=== PATIENT | female | born 1960 | race Caucasian/White ===

== ENCOUNTER → 2017-10-13 14:13 | Outpatient (CLI) | payer OTHER, MEDICAID, SELFPAY ==
--- NOTE | 2017-10-13 | DI.NM.S_ITS ---
PROCEDURE: NM SATYA PERF SPECT R&S PHARM Rest and pharmacological stress myocardial perfusion SPECT with gated imaging and ejection fraction RADIOPHARMACEUTICAL: 26.5 mCi Tc-99m tetrafosmin IV at rest and 25.6 mCi Tc-99m tetrafosmin IV at peak effect of pharmacological stress. [id number] was performed. INDICATIONS: DYSPNEA ON EXERTION TECHNIQUE: Radiopharmaceutical was injected at peak stress test, and also at rest. SPECT images were obtained. SPECT myocardial perfusion images were displayed in short axis, horizontal long axis, and vertical long axis views. Gated images were reviewed using [employer] software. COMPARISON: None. CARDIAC STRESS: Patient exercised for 5 minutes and 40 sconds and reached 80% of target heart rate. Study was then switched to pharmacologic stress test, which was also performed under the supervision of an attending staff, using an infusion of lexiscan 0.4mg IV X1. Hemodynamic data: There is borderline hypertensive (max BP 200/70) response to exercise and normal heart rate response to exercise. Symptoms: The patient denied anginal chest pain. Aminophylline: none EKG: No diagnostic changes of ischemia; no ectopy. FINDINGS: Raw data: There is good myocardial uptake of radiotracer. No significant motion artifacts. Left ventricle function: Gated images demonstrate normal left ventricular wall thickening. No segmental wall motion abnormalities. No transient ischemic dilation; TID is 0.88 (normal less than 1.3). Left ventricle resting end diastolic volume is 101 mL. Left ventricle stress ejection fraction is 88%; normal range is above 45%. Myocardial perfusion: There is normal distribution of activity in the right and left ventricular myocardium. No fixed or reversible perfusion defects. IMPRESSION: Low risk, normal treadmill and pharmaceutcal nuclear stress test. 1) Normal perfusion images, with no ischemia and no infarction. 2) Normal left ventricular size, wall motion, and systolic function (post stress EF 88%). 3) No ECG changes with treadmill or lexiscan. 4) No angina during the study. 5) Reduced exercise capacity (7.0 METs). While the only 80% of maximum predicted heart rate was reached, the double product was [address]43 suggesting adequate stresss test. Study was still switched to pharmaceutical study for completeness sake. 6) Borderline hypertensive response with exercise (max BP 200/70). 7) No prior stress test available for comparison. Dictated by: George Cao MD on 10/14/2017 at 13:15 Approved by: George Cao MD on 10/14/2017 at 13:20
[2017-10-13 16:05] LABS: Add Manual Diff / Slide Review NO; Basophils Percent Auto 0.8 % (0-2); Eosinophils Percent Auto 1.4 % (2-4); Hematocrit 39.9 % (36-46); Hemoglobin 13.6 g/dL (12.0-16.0); Lymphocytes Percent Auto 49.2 % (25-40); Mean Corpuscular HGB Conc 34.2 % (30-36); Mean Corpuscular Hemoglobin 30.4 PG (26-34); Mean Corpuscular Volume 88.9 fL (80-100); Monocytes Percent Auto 15.6 % (3-14); Neutrophils Absolute Auto 1800 /uL (3000-5900); Platelet Count 288 X10^3/uL (150-400); Red Blood Cell Count 4.49 X10^6/uL (4.0-5.2); Red Cell Distribution Width 14.7 % (11.6-14.8); White Blood Cell Count 5.4 X10^3/uL (4.5-11.0)
[2017-10-13 17:37] LABS: BUN Creatinine Ratio 27.1 (6-22); Blood Urea Nitrogen 19 mg/dL (7-17); Calcium 9.9 mg/dL (8.4-10.2); Carbon Dioxide 28 mmol/L (22-32); Chloride 100 mmol/L (98-107); Cholesterol 173 mg/dL (140-199); Estimated Glomerular Filt Rate > 60.0 mL/min (>60); Glucose 89 mg/dL (70-100); HDL Cholesterol 86 mg/dL (40-60); HEMOLYSIS < 15 (0-50); LDL Cholesterol Calculated 72 mg/dL (<100); Potassium 4.1 mmol/L (3.4-5.1); Sodium 141 mmol/L (137-145); Triglycerides 73 mg/dL (35-150)
== END ==
PROVIDERS: Family Provider Physician Assistant; PCP Physician Assistant; Visit Provider Internal Medicine Cardiovascular Disease
DX: R06.00 Dyspnea, unspecified (principal); R07.2 Precordial pain
CPT/HCPCS: 36415; 78452; 80048; 80061; 85025; 93016; 93017; 93018; A9502; J2785

== ENCOUNTER → 2018-02-01 07:17 | Outpatient (CLI) | payer OTHER, MEDICAID, SELFPAY ==
--- NOTE | 2018-02-01 | DI.MRI.S_ITS ---
PROCEDURE: MR HAND LT WO/W CON INDICATIONS: RHEUMATOID FACTOR POSITIVE TECHNIQUE: Coronal and axial T1 spin echo and T2 fast spin echo with fat saturation. Post-contrast coronal and axial T1 spin echo with fat saturation images through the left hand and wrist. COMPARISON: [facility], CR, XR HAND 3+ VIEWS BILATERAL, 07/18/2017, 15:40. FINDINGS: Image quality: Excellent. Bones and cartilage: Degenerative changes seen at the first CMC, thumb interphalangeal and first MCP joint. There are enhancing sub-5 mm marginal marrow signal changes involving the third metacarpal head, proximal phalanges of the middle and ring finger at the PIP joint, in keeping with erosions. Marrow signal changes with enhancement also present within the trapezoid and first metacarpal at the first MCP joint. Synovium: Thickened, enhancing synovium is present at the second and fifth MCP joints, index middle ring finger PIP joints, as well as surrounding the ulnar styloid in keeping with synovitis. Soft tissues: Index finger extensor tenosynovitis. There is also index, ring little finger flexor tenosynovitis. No definite pathologic joint effusions. IMPRESSION: Polyarticular erosive changes and enhancing synovitis as detailed above primarily involving the second and fifth MCP joint as well as the PIP joints of the index, middle and ring finger. Additional synovitis at the ulnar aspect of the carpus. Index finger extensor tenosynovitis. Index ring and little finger flexor tenosynovitis. Dictated by: Rick Galloway M.D. on 02/01/2018 at 9:39 Approved by: Rick Galloway M.D. on 02/01/2018 at 9:53
[2018-02-01 09:36] LABS: Alanine Aminotransferase 29 IU/L (9-52); Albumin 4.3 g/dL (3.5-5.0); Albumin Globulin Ratio 1.3 (1.0-2.8); Alkaline Phosphatase 75 U/L (38-126); Aspartate Aminotransferase 21 IU/L (14-36); BUN Creatinine Ratio 32.9 (6-22); Bilirubin Total 0.4 mg/dL (0.2-1.3); Blood Urea Nitrogen 23 mg/dL (7-17); Calcium 9.5 mg/dL (8.4-10.2); Carbon Dioxide 31 mmol/L (22-32); Chloride 100 mmol/L (98-107); Estimated Glomerular Filt Rate > 60.0 mL/min (>60); Globulin 3.2 g/dL (1.7-4.1); Glucose 97 mg/dL (70-100); HEMOLYSIS < 15 (0-50); Potassium 4.8 mmol/L (3.4-5.1); Sodium 141 mmol/L (137-145); Total Protein 7.5 g/dL (6.3-8.2)
== END ==
PROVIDERS: Visit Provider Specialist/Technologist Athletic Trainer
DX: M65.842 Other synovitis and tenosynovitis, left hand (principal); M12.9 Arthropathy, unspecified; R76.8 Other specified abnormal immunological findings in serum
CPT/HCPCS: 36415; 73220; 80053; A9579

== ENCOUNTER → 2018-03-20 08:42 | Outpatient (CLI) | payer OTHER, MEDICAID, SELFPAY ==
[2018-03-20 09:34] LABS: Add Manual Diff / Slide Review NO; Basophils Percent Auto 0.8 % (0-2); Eosinophils Percent Auto 2.2 % (2-4); Hematocrit 38.1 % (36-46); Hemoglobin 12.9 g/dL (12.0-16.0); Lymphocytes Percent Auto 39.9 % (25-40); Mean Corpuscular HGB Conc 33.8 % (30-36); Mean Corpuscular Volume 88.9 fL (80-100); Monocytes Percent Auto 17.4 % (3-14); Neutrophils Absolute Auto 1800 /uL (3000-5900); Neutrophils Percent Auto 39.7 % (50-75); Platelet Count 313 X10^3/uL (150-400); Red Blood Cell Count 4.29 X10^6/uL (4.0-5.2); Red Cell Distribution Width 14.8 % (11.6-14.8); White Blood Cell Count 4.5 X10^3/uL (4.5-11.0)
[2018-03-20 10:09] LABS: Erythrocyte Sedimentation Rate 20 MM/HR (0-20)
[2018-03-20 10:14] LABS: Alanine Aminotransferase 36 IU/L (9-52); Albumin 4.2 g/dL (3.5-5.0); Albumin Globulin Ratio 1.4 (1.0-2.8); Alkaline Phosphatase 74 U/L (38-126); Aspartate Aminotransferase 22 IU/L (14-36); BUN Creatinine Ratio 21.4 (6-22); Bilirubin Total 0.5 mg/dL (0.2-1.3); Blood Urea Nitrogen 15 mg/dL (7-17); C-Reactive Protein Quant 0.5 mg/dL (<1.0); Calcium 9.2 mg/dL (8.4-10.2); Carbon Dioxide 26 mmol/L (22-32); Chloride 103 mmol/L (98-107); Estimated Glomerular Filt Rate > 60.0 mL/min (>60); Globulin 2.9 g/dL (1.7-4.1); Glucose 101 mg/dL (70-100); HEMOLYSIS < 15 (0-50); Potassium 4.2 mmol/L (3.4-5.1); Sodium 141 mmol/L (137-145); Total Protein 7.1 g/dL (6.3-8.2)
== END ==
PROVIDERS: Visit Provider Specialist/Technologist Athletic Trainer
DX: M05.9 Rheumatoid arthritis with rheumatoid factor, unspecified (principal)
CPT/HCPCS: 36415; 80053; 83520; 85025; 85651; 86140

== ENCOUNTER → 2018-05-08 11:14 | Outpatient (CLI) | payer OTHER, MEDICAID, SELFPAY ==
[2018-05-08 12:11] LABS: Add Manual Diff / Slide Review NO; Basophils Absolute Auto 0 /uL (0-100); Basophils Percent Auto 0.6 % (0-2); Eosinophils Absolute Auto 100 /uL (0-450); Eosinophils Percent Auto 1.8 % (2-4); Hematocrit 41.2 % (36-46); Hemoglobin 13.5 g/dL (12.0-16.0); Lymphocytes Absolute Auto 2200 /uL (1100-4500); Lymphocytes Percent Auto 40.8 % (25-40); Mean Corpuscular HGB Conc 32.8 % (30-36); Mean Corpuscular Hemoglobin 30.4 PG (26-34); Mean Corpuscular Volume 92.7 fL (80-100); Monocytes Absolute Auto 800 /uL (0-900); Monocytes Percent Auto 14.5 % (3-14); Neutrophils Absolute Auto 2300 /uL (1500-7000); Neutrophils Percent Auto 42.3 % (50-75); Platelet Count 323 X10^3/uL (150-400); Red Blood Cell Count 4.44 X10^6/uL (4.0-5.2); Red Cell Distribution Width 15.8 % (11.6-14.8); White Blood Cell Count 5.3 X10^3/uL (4.5-11.0)
[2018-05-08 12:25] LABS: Erythrocyte Sedimentation Rate 18 MM/HR (0-20)
[2018-05-08 13:06] LABS: Alanine Aminotransferase 32 IU/L (9-52); Albumin 4.5 g/dL (3.5-5.0); Albumin Globulin Ratio 1.4 (1.0-2.8); Alkaline Phosphatase 65 U/L (38-126); Aspartate Aminotransferase 21 IU/L (14-36); Bilirubin Total 0.5 mg/dL (0.2-1.3); Blood Urea Nitrogen 29 mg/dL (7-17); C-Reactive Protein Quant 0.5 mg/dL (<1.0); Calcium 9.8 mg/dL (8.4-10.2); Carbon Dioxide 27 mmol/L (22-32); Chloride 102 mmol/L (98-107); Estimated Glomerular Filt Rate 57.6 mL/min (>60); Globulin 3.2 g/dL (1.7-4.1); Glucose 94 mg/dL (70-100); HEMOLYSIS < 15 (0-50); Sodium 138 mmol/L (137-145); Total Protein 7.7 g/dL (6.3-8.2)
[2018-05-08 13:07] LABS: Potassium 5.8 mmol/L (3.4-5.1)
== END ==
PROVIDERS: PCP Family Medicine; Visit Provider Specialist/Technologist Athletic Trainer
DX: M05.9 Rheumatoid arthritis with rheumatoid factor, unspecified (principal)
CPT/HCPCS: 36415; 80053; 85025; 85651; 86140

== ENCOUNTER → 2018-05-31 15:57 | Outpatient (CLI) | payer OTHER, MEDICAID, SELFPAY ==
[2018-05-31 16:55] LABS: Add Manual Diff / Slide Review NO; Basophils Absolute Auto 0 /uL (0-100); Basophils Percent Auto 0.6 % (0-2); Eosinophils Absolute Auto 100 /uL (0-450); Eosinophils Percent Auto 1.5 % (2-4); Hematocrit 41.9 % (36-46); Hemoglobin 14.1 g/dL (12.0-16.0); Lymphocytes Absolute Auto 2500 /uL (1100-4500); Lymphocytes Percent Auto 45.9 % (25-40); Mean Corpuscular HGB Conc 33.7 % (30-36); Mean Corpuscular Hemoglobin 30.9 PG (26-34); Mean Corpuscular Volume 91.9 fL (80-100); Monocytes Absolute Auto 700 /uL (0-900); Monocytes Percent Auto 13.2 % (3-14); Neutrophils Absolute Auto 2100 /uL (1500-7000); Neutrophils Percent Auto 38.8 % (50-75); Platelet Count 336 X10^3/uL (150-400); Red Blood Cell Count 4.56 X10^6/uL (4.0-5.2); Red Cell Distribution Width 15.4 % (11.6-14.8); White Blood Cell Count 5.5 X10^3/uL (4.5-11.0)
[2018-05-31 17:14] LABS: Alanine Aminotransferase 40 IU/L (9-52); Albumin 4.9 g/dL (3.5-5.0); Albumin Globulin Ratio 1.4 (1.0-2.8); Alkaline Phosphatase 81 U/L (38-126); Aspartate Aminotransferase 27 IU/L (14-36); BUN Creatinine Ratio 26.7 (6-22); Bilirubin Total 0.6 mg/dL (0.2-1.3); Blood Urea Nitrogen 24 mg/dL (7-17); C-Reactive Protein Quant 0.7 mg/dL (<1.0); Calcium 10.3 mg/dL (8.4-10.2); Carbon Dioxide 28 mmol/L (22-32); Chloride 98 mmol/L (98-107); Estimated Glomerular Filt Rate > 60.0 mL/min (>60); Globulin 3.6 g/dL (1.7-4.1); Glucose 100 mg/dL (70-100); HEMOLYSIS < 15 (0-50); Potassium 4.4 mmol/L (3.4-5.1); Sodium 139 mmol/L (137-145); Total Protein 8.5 g/dL (6.3-8.2)
[2018-05-31 17:37] LABS: Erythrocyte Sedimentation Rate 18 MM/HR (0-20)
== END ==
PROVIDERS: Family Provider Family Medicine; PCP Family Medicine; Visit Provider Specialist/Technologist Athletic Trainer
DX: M05.9 Rheumatoid arthritis with rheumatoid factor, unspecified (principal)
CPT/HCPCS: 36415; 80053; 85025; 85651; 86140

== ENCOUNTER → 2018-08-22 17:20 | Outpatient (CLI) | payer OTHER, MEDICAID, SELFPAY ==
[2018-08-22 17:49] LABS: Add Manual Diff / Slide Review NO; Basophils Absolute Auto 100 /uL (0-100); Basophils Percent Auto 1.4 % (0-2); Eosinophils Absolute Auto 100 /uL (0-450); Eosinophils Percent Auto 2.7 % (2-4); Hemoglobin 12.9 g/dL (12.0-16.0); Lymphocytes Absolute Auto 1900 /uL (1100-4500); Lymphocytes Percent Auto 35.4 % (25-40); Mean Corpuscular HGB Conc 33.1 % (30-36); Mean Corpuscular Hemoglobin 31.1 PG (26-34); Monocytes Absolute Auto 600 /uL (0-900); Monocytes Percent Auto 11.1 % (3-14); Neutrophils Absolute Auto 2600 /uL (1500-7000); Neutrophils Percent Auto 49.4 % (50-75); Platelet Count 337 X10^3/uL (150-400); Red Blood Cell Count 4.15 X10^6/uL (4.0-5.2); Red Cell Distribution Width 14.8 % (11.6-14.8); White Blood Cell Count 5.2 X10^3/uL (4.5-11.0)
[2018-08-22 18:04] LABS: Erythrocyte Sedimentation Rate 39 MM/HR (0-20)
[2018-08-22 18:55] LABS: Alanine Aminotransferase 44 IU/L (9-52); Albumin 4.4 g/dL (3.5-5.0); Albumin Globulin Ratio 1.4 (1.0-2.8); Alkaline Phosphatase 75 U/L (38-126); Aspartate Aminotransferase 25 IU/L (14-36); BUN Creatinine Ratio 26.7 (6-22); Bilirubin Total 0.2 mg/dL (0.2-1.3); Blood Urea Nitrogen 24 mg/dL (7-17); C-Reactive Protein Quant 1.7 mg/dL (<1.0); Calcium 9.5 mg/dL (8.4-10.2); Carbon Dioxide 26 mmol/L (22-32); Chloride 101 mmol/L (98-107); Estimated Glomerular Filt Rate > 60.0 mL/min (>60); Globulin 3.1 g/dL (1.7-4.1); Glucose 95 mg/dL (70-100); HEMOLYSIS < 15 (0-50); Potassium 3.8 mmol/L (3.4-5.1); Sodium 139 mmol/L (137-145); Total Protein 7.5 g/dL (6.3-8.2)
== END ==
PROVIDERS: Family Provider Family Medicine; PCP Family Medicine; Visit Provider Specialist/Technologist Athletic Trainer
DX: M05.9 Rheumatoid arthritis with rheumatoid factor, unspecified (principal)
CPT/HCPCS: 36415; 80053; 85025; 85651; 86140

== ENCOUNTER 2018-10-09 12:30 | Outpatient (RCR) | payer OTHER, MEDICAID, SELFPAY ==
--- NOTE | 2018-10-04 15:15 | PT.OIE ---
Current Diagnoses Pain in unspecified hip (10/04/18) Muscle weakness (generalized) (10/04/18) Pain in leg, unspecified (10/04/18) Unspecified abnormalities of gait and mobility (10/04/18) Past Medical History (Last Reviewed 02/21/18 @ 15:54 by Ashley Sherman DO) Foot pain (Acute Unknown) Anxiety (Chronic Unknown) Depression (Chronic Unknown) Hearing loss (Chronic Unknown) PTSD (post-traumatic stress disorder) (Chronic Unknown) Restless leg syndrome (Chronic Unknown) Rheumatoid arthritis (Chronic ~02/2017) Sleep apnea (Chronic Unknown) Chickenpox (Resolved 1969) Past Surgical History (Last Reviewed 02/21/18 @ 15:54 by Ashley Sherman DO) Status post discectomy Provider Visit Care Team Role Provider Type Ashley Sherman DO Attending Provider Physician Family Provider Primary Care Provider Specialty: Family Practice Address: [address] [place] [address] Email: [email or web address] Physical Therapy Initial Evaluation PT-OP-A Visit Information Start: 10/04/18 17:26 Freq: Status: Active Protocol: Document 10/04/18 15:15 DLM (Rec: 10/04/18 18:23 DL [id number]) Out-Patient Physical Therapy Visit Information Visit Information Visit Type Initial Evaluation Visit Note 24 units of therapy authorized (approx 9 visits total including eval) Visit Start Time 15:15 Visit Stop Time 16:01 Total Visit Minutes 46 Visit Number 1 Number of SENIOR UI DESIGNER Visits 0 Evaluation Information Evaluation Date 10/04/18 Precautions Precautions hx cellulitis in LE PT-OP-B Current Condition Start: 10/04/18 17:26 Freq: Status: Active Protocol: Document 10/04/18 15:15 DLM (Rec: 10/04/18 18:23 DL [id number]) Current Condition History of Current Condition Onset Date Gradual Current Complaints Bilateral hip pain History of Current Condition She had a gradual onset of pain in shoulders, hands, hips , knees and feet. She underwent a lot of testing and has new diagnoses of RA, Fibromyalgia, OA. Injections and medications have improved her over-all pain. Now her hips are the worst pain. The hip pain makes it hard to walk . She has exercised in the pool in the past and really likes the water. She wants to start therapy in the pool. Prior Treatments and Tests Steroid injections in hips x2. The most recent injections were yesturday. Multiple tests recently including x-rays and MRI. Future Testing and Treatments Planned She continues to undergo testing with her physicians. Treatment Goals Patient/Caregiver Goals She wants to be able to walk further without hip pain. She wants to tolerate more activity. She wants to be able to bend over to the floor and be able to get on/off the floor without increased pain. 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 daughter Baseline Function- Recreation/Hobbies hiking, recreation in the water Current Functional Impairments (Reported) Functional Limitations- ADL's Independent but slow due to pain, painful getting LE's into car and has to use UE's to assist Functional Limitations- Mobility/Gait pain rolling over in bed, pain bending over to reach the floor, hard to get on/off floor and can only do it if has UE support, limited walking tolerance due to pain, she has to stop twice to be able to walk into work, stops to rests for 10-15 sec and can then walk more, ok if she is just standing and moving around on her feet, she can walk better if holding a shopping cart Functional Limitations- 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, difficulty or unable to go to her daughters school events due to difficulty walking and getting into bleachers Functional Limitations- Recreation/ unable to hike, has not been Hobbies able to exercise, unable to do fun things with her daughter Functional Limitations- Other 50# weight gain in the past year Personal Factors Other Personal Factors That May Effect very hard of hearing, hx back Therapy/Recovery discectomy sx, depression PT-OP-C Subjective Start: 10/04/18 17:26 Freq: Status: Active Protocol: Document 10/04/18 15:15 DLM (Rec: 10/04/18 18:23 DLM [id number]) OP-PT Subjective Patient Comments Patient Comments She believes she can work pool therapy in around her work schedule Patient Questionnaires Lower Extremity Functional Scale LEFS Score 27 LEFS Impairment 60 to 79% Impaired (Score 17- 31) OP-PT Pain Assessment Pain Assessment Grid Paper Pain Assessment Grid Completed Yes: in paper chart Location Bilateral Foot Intensity 4 Scale Used Numeric (1 - 10) Description Aching Frequency Intermittent Pain Alleviating Factors Medication Bilateral Knee Pain Location Details right more than left today Intensity 2 Scale Used Numeric (1 - 10) Description Aching Frequency Intermittent Variations/Patterns cramping in distal LE's that has gotten better w/vitamin water Pain Alleviating Factors Medication Rest Bilateral Hand Pain Location Details 2-4/10 pain Intensity 4 Scale Used Numeric (1 - 10) Description Aching Frequency Intermittent Pain Alleviating Factors Medication Bilateral Shoulder Pain Location Details 3-4/10 pain Intensity 4 Scale Used Numeric (1 - 10) Description Aching Description- Other zapping Frequency Daily Pain Alleviating Factors Medication Bilateral Hip Pain Location Details ave pain is 4/10, worst 9/10 Intensity 4 Scale Used Numeric (1 - 10) Description Aching Chronic With Movement Frequency Intermittent Pain Aggravating Factors Changing Position Walking Bending Other Pain Aggravating Factors rolling over in bed, getting up/down from floor, getting LE 's into car Pain Alleviating Factors Heat Medication Sitting Rest Other Pain Alleviating Factors no pain when sitting, hot shower helps Home Pain Medication Use Pain Medications Used Yes: Tramadol Home Pain Medication Frequency when her pain gets severe, PRN Pain Behaviors Pain Behaviors Facial Grimacing Wincing PT-OP-E Functional Tests Start: 10/04/18 17:26 Freq: Status: Active Protocol: Document 10/04/18 15:15 DLM (Rec: 10/04/18 18:23 [facility] [id number]) Functional Tests Five Times Sit to Stand Test Score 11 sec Comments no UE support used PT-OP-G Mobility & Gait Start: 10/04/18 17:26 Freq: Status: Active Protocol: Document 10/04/18 15:15 DLM (Rec: 10/04/18 18:23 [facility] [id number]) OP Mobility Evaluation Bed Mobility Rolling independent but painful Supine to and from Sit independent Transfers Sit to Stand independent without UE support Bed to Chair Transfers Independent with minimal UE support Car Transfers Pt reports she needs to use UE to assist LE's into car Floor Transfers needs UE support for up and down Functional Movements Squats pain in knees and hips OP Gait Assessment Gait Gait Assistance Required: Independent Assistive Devices Assistive Device None Gait Deviations General Gait Pattern Antalgic Wide Based Gait Factors Limiting Gait Function Factors Limiting Gait Function Decreased Activity Tolerance Pain Stair Climbing Evaluation Comments Stair Climbing Comments pt reports she can do her stairs at home if she has rails to assist PT-OP-H Neuro Start: 10/04/18 17:26 Freq: Status: Active Protocol: Document 10/04/18 15:15 DLM (Rec: 10/04/18 18:23 DLM [id number]) Sensation Evaluation Comments Summary Comments hx shows neuropathy, no numbness/tingling reported at this time, she reports her hand and feet pain have improved a lot since starting new medications Coordination Evaluation Comments Coordination Comments grossly WNL throughout, LE edema noted bilaterally PT-OP-K Range of Motion Start: 10/04/18 17:26 Freq: Status: Active Protocol: Document 10/04/18 15:15 DLM (Rec: 10/04/18 18:23 DLM [id number]) Hip Goniometric Range of Motion Hip Measured in Degrees Right Active Hip ROM WFL Yes Left Active Hip ROM WFL Yes Hip ROM Limitations Comments straight leg raise is WNL Knee Goniometric Range of Motion Knee Measured in Degrees bilateral Knee ROM WFL Yes Patient Position Sitting Knee ROM Limitations Knee ROM Limitations Pain PT-OP-M Strength Start: 10/04/18 17:26 Freq: Status: Active Protocol: Document 10/04/18 15:15 DLM (Rec: 10/04/18 18:23 DLM [id number]) Hip Strength Hip Manual Muscle Testing Right Flexion (L2) 4- Good- Extension (S1) 5 Normal Abduction 5 Normal Adduction 5 Normal External Rotation 5 Normal Internal Rotation 5 Normal Reason Not Measured Pain Left Flexion (L2) 3- Fair- Abduction 5 Normal Adduction 5 Normal External Rotation 5 Normal Internal Rotation 5 Normal Reason Not Measured Pain Knee Strength Knee Manual Muscle Testing Right Flexion (S2) 5 Normal Extension (L3) 5 Normal Reason Not Measured Pain Comments pain with resisted knee extension in medial area, also sore to touch in medial hamstring and adductor distally near the knee Left Flexion (S2) 5 Normal Extension (L3) 5 Normal Ankle/Foot Strength Ankle and Foot Manual Muscle Testing bilateral Dorsiflexion (L4) 5 Normal Plantarflexion (S1) 5 Normal Comments PF tested in standing PT-OP-T Assessment and Plan Start: 10/04/18 17:26 Freq: Status: Active Protocol: Document 10/04/18 15:15 DLM (Rec: 10/04/18 18:23 DLM [id number]) Physical Therapy Assessment Rehab Potential Rehabilitation Potential Good Evaluation Complexity Number of Personal Factors/Comorbidities 3 or More Number of Body Systems Impaired 4 or More Clinical Presentation at Evaluation Evolving Impairments Impairments Activity Tolerance Functional Activities Functional Mobility Gait Pain Soft Tissue Mobility Strength Other Concerns Fall Risk hx of falls Barriers to Rehabilitation chronic pain associated with RA and fibromyalgia Goals Three Impairment No 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 STG Duration 4 weeks Half-Way Goal (LTG) Be able to get LE's into car without UE assist LTG Duration 6 weeks One Impairment Gait Impaired Short Term Goal (STG) Be able to ambulate 5 min without having to stop due to pain STG Duration 4 weeks Half-Way Goal (LTG) Be able to ambulate for 10 min without having to stop due to pain LTG Duration 6 weeks Assessment Summary Assessment She presents with a complex chronic pain pattern in many body areas that have been associated with her new diagnoses of RA, OA and fibromyalgia. Pt reports her pain has been improving with medical treatments. She feels her hip pain is limiting her the most functionally at this time. She enjoys being in the water and is motivated to start an aquatic program at this time. She appears to be a good candidate for aquatic therapy at this time with the primary focus on her hip pain but will incorporate body exercises to help manage her multiple painful areas. Will work with [employer] to schedule pool treatments around her work schedule. Physical Therapy Plan Frequency and Duration Frequency of Treatment 1-2x/week Duration of Treatment 6 weeks Plan of Care Start Date 10/04/18 Plan of Care End Date 11/17/18 Therapeutic Interventions Therapeutic Interventions Aquatic Therapy Gait Training Home Exercise Program Neuromuscular Re-education Patient/Caregiver Education Self-Care/Home Management Therapeutic Activities Therapeutic Exercises Other Therapeutic Interventions pt wants to start only with Aquatic therapy at this time Next Visit Focus/Plan Next Note Type Treatment Note Next Visit Plan Start aquatic therapy 1-2x/ week as can be scheduled around work, she plans on being out of town on vacation October 19-October 24.
--- NOTE | 2018-10-04 15:15 | PT.OPPOC ---
Current Diagnoses Pain in unspecified hip (10/04/18) Muscle weakness (generalized) (10/04/18) Pain in leg, unspecified (10/04/18) Unspecified abnormalities of gait and mobility (10/04/18) Provider Visit Care Team Role Provider Type Ashley Sherman DO Attending Provider Physician Family Provider Primary Care Provider Specialty: Family Practice Address: [address] [place] [address], [id number] Email: [email or web address] Plan Of Care PT-OP-T Assessment and Plan Start: 10/04/18 17:26 Freq: Status: Active Protocol: Document 10/04/18 15:15 DLM (Rec: 10/04/18 18:23 DLM [id number]) Physical Therapy Assessment Rehab Potential Rehabilitation Potential Good Evaluation Complexity Number of Personal Factors/Comorbidities 3 or More Number of Body Systems Impaired 4 or More Clinical Presentation at Evaluation Evolving Impairments Impairments Activity Tolerance Functional Activities Functional Mobility Gait Pain Soft Tissue Mobility Strength Other Concerns Fall Risk hx of falls Barriers to Rehabilitation chronic pain associated with RA and fibromyalgia Goals Three Impairment No current HEP Long-Term 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 STG Duration 4 weeks Long-Term Goal (LTG) Be able to get LE's into car without UE assist LTG Duration 6 weeks One Impairment Gait Impaired Short Term Goal (STG) Be able to ambulate 5 min without having to stop due to pain STG Duration 4 weeks Long-Term Goal (LTG) Be able to ambulate for 10 min without having to stop due to pain LTG Duration 6 weeks Assessment Summary Assessment She presents with a complex chronic pain pattern in many body areas that have been associated with her new diagnoses of RA, OA and fibromyalgia. Pt reports her pain has been improving with medical treatments. She feels her hip pain is limiting her the most functionally at this time. She enjoys being in the water and is motivated to start an aquatic program at this time. She appears to be a good candidate for aquatic therapy at this time with the primary focus on her hip pain but will incorporate body exercises to help manage her multiple painful areas. Will work with [employer] to schedule pool treatments around her work schedule. Physical Therapy Plan Frequency and Duration Frequency of Treatment 1-2x/week Duration of Treatment 6 weeks Plan of Care Start Date 10/04/18 Plan of Care End Date 11/17/18 Therapeutic Interventions Therapeutic Interventions Aquatic Therapy Gait Training Home Exercise Program Neuromuscular Re-education Patient/Caregiver Education Self-Care/Home Management Therapeutic Activities Therapeutic Exercises Other Therapeutic Interventions pt wants to start only with Aquatic therapy at this time Next Visit Focus/Plan Next Note Type Treatment Note Next Visit Plan Start aquatic therapy 1-2x/ week as can be scheduled around work, she plans on being out of town on vacation October 19-October 24. Plan of Care Dates Plan of Care Start Date 10/04/18 Plan of Care End Date 11/17/18 Please Sign and Return: I have reviewed this Plan of Care and certify that the skilled therapy services above are required to meet the patient?s needs. Physician Signature Date Printed Name and Credentials
--- NOTE | 2018-10-09 16:23 | PT.OTN ---
Current Diagnoses Pain in unspecified hip (10/09/18) Muscle weakness (generalized) (10/09/18) Pain in leg, unspecified (10/09/18) Unspecified abnormalities of gait and mobility (10/09/18) Physical Therapy Treatment Note PT-OP-A Visit Information Start: 10/04/18 17:26 Freq: Status: Active Protocol: Document 10/09/18 12:30 SAK (Rec: 10/09/18 16:22 SAK [id number]) Out-Patient Physical Therapy Visit Information Visit Information Visit Type Treatment Note Visit Start Time 12:30 Visit Stop Time 13:15 Total Visit Minutes 45 Visit Number 2 Number of [employer]NAGER Visits 0 Evaluation Information Evaluation Date 10/04/18 Precautions Precautions hx cellulitis in LE PT-OP-B Current Condition Start: 10/04/18 17:26 Freq: Status: Active Protocol: Document 10/04/18 15:15 DLM (Rec: 10/04/18 18:23 DLM [id number]) Current Condition History of Current Condition Onset Date Gradual Current Complaints Bilateral hip pain History of Current Condition She had a gradual onset of pain in shoulders, hands, hips , knees and feet. She underwent a lot of testing and has new diagnoses of RA, Fibromyalgia, OA. Injections and medications have improved her over-all pain. Now her hips are the worst pain. The hip pain makes it hard to walk . She has exercised in the pool in the past and really likes the water. She wants to start therapy in the pool. Prior Treatments and Tests Steroid injections in hips x2. The most recent injections were yesturday. Multiple tests recently including x-rays and MRI. Future Testing and Treatments Planned She continues to undergo testing with her physicians. Treatment Goals Patient/Caregiver Goals She wants to be able to walk further without hip pain. She wants to tolerate more activity. She wants to be able to bend over to the floor and be able to get on/off the floor without increased pain. 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 daughter Baseline Function- Recreation/Hobbies hiking, recreation in the water Current Functional Impairments (Reported) Functional Limitations- ADL's Independent but slow due to pain, painful getting LE's into car and has to use UE's to assist Functional Limitations- Mobility/Gait pain rolling over in bed, pain bending over to reach the floor, hard to get on/off floor and can only do it if has UE support, limited walking tolerance due to pain, she has to stop twice to be able to walk into work, stops to rests for 10-15 sec and can then walk more, ok if she is just standing and moving around on her feet, she can walk better if holding a shopping cart Functional Limitations- 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, difficulty or unable to go to her daughters school events due to difficulty walking and getting into bleachers Functional Limitations- Recreation/ unable to hike, has not been Hobbies able to exercise, unable to do fun things with her daughter Functional Limitations- Other 50# weight gain in the past year Personal Factors Other Personal Factors That May Effect very hard of hearing, hx back Therapy/Recovery discectomy sx, depression PT-OP-C Subjective Start: 10/04/18 17:26 Freq: Status: Active Protocol: Document 10/09/18 12:30 SAK (Rec: 10/09/18 16:23 SAK [id number]) OP-PT Subjective Patient Comments Patient Comments excited to try aquatic therapy . PT-OP-E Functional Tests Start: 10/04/18 17:26 Freq: Status: Active Protocol: Document 10/04/18 15:15 DLM (Rec: 10/04/18 18:23 DLM [id number]) Functional Tests Five Times Sit to Stand Test Score 11 sec Comments no UE support used PT-OP-G Mobility & Gait Start: 10/04/18 17:26 Freq: Status: Active Protocol: Document 10/04/18 15:15 DLM (Rec: 10/04/18 18:23 DLM [id number]) OP Mobility Evaluation Bed Mobility Rolling independent but painful Supine to and from Sit independent Transfers Sit to Stand independent without UE support Bed to Chair Transfers Independent with minimal UE support Car Transfers Pt reports she needs to use UE to assist LE's into car Floor Transfers needs UE support for up and down Functional Movements Squats pain in knees and hips OP Gait Assessment Gait Gait Assistance Required: Independent Assistive Devices Assistive Device None Gait Deviations General Gait Pattern Antalgic Wide Based Gait Factors Limiting Gait Function Factors Limiting Gait Function Decreased Activity Tolerance Pain Stair Climbing Evaluation Comments Stair Climbing Comments pt reports she can do her stairs at home if she has rails to assist PT-OP-H Neuro Start: 10/04/18 17:26 Freq: Status: Active Protocol: Document 10/04/18 15:15 DLM (Rec: 10/04/18 18:23 DLM [id number]) Sensation Evaluation Comments Summary Comments hx shows neuropathy, no numbness/tingling reported at this time, she reports her hand and feet pain have improved a lot since starting new medications Coordination Evaluation Comments Coordination Comments grossly WNL throughout, LE edema noted bilaterally PT-OP-K Range of Motion Start: 10/04/18 17:26 Freq: Status: Active Protocol: Document 10/04/18 15:15 DLM (Rec: 10/04/18 18:23 DLM [id number]) Hip Goniometric Range of Motion Hip Right Active Hip ROM WFL Yes Left Active Hip ROM WFL Yes Hip ROM Limitations Comments straight leg raise is WNL Knee Goniometric Range of Motion Knee bilateral Knee ROM WFL Yes Patient Position Sitting Knee ROM Limitations Knee ROM Limitations Pain PT-OP-M Strength Start: 10/04/18 17:26 Freq: Status: Active Protocol: Document 10/04/18 15:15 DLM (Rec: 10/04/18 18:23 DLM [id number]) Hip Strength Hip Manual Muscle Testing Right Flexion (L2) 4- Good- Extension (S1) 5 Normal Abduction 5 Normal Adduction 5 Normal External Rotation 5 Normal Internal Rotation 5 Normal Reason Not Measured Pain Left Flexion (L2) 3- Fair- Abduction 5 Normal Adduction 5 Normal External Rotation 5 Normal Internal Rotation 5 Normal Reason Not Measured Pain Knee Strength Knee Manual Muscle Testing Right Flexion (S2) 5 Normal Extension (L3) 5 Normal Reason Not Measured Pain Comments pain with resisted knee extension in medial area, also sore to touch in medial hamstring and adductor distally near the knee Left Flexion (S2) 5 Normal Extension (L3) 5 Normal Ankle/Foot Strength Ankle and Foot Manual Muscle Testing bilateral Dorsiflexion (L4) 5 Normal Plantarflexion (S1) 5 Normal Comments PF tested in standing PT-OP-S Aquatic Treatment Start: 10/04/18 17:26 Freq: Status: Active Protocol: Document 10/09/18 12:30 [facility] (Rec: 10/09/18 16:22 [facility] [id number]) Aquatics Treatment Pool Entry/Exit Pool Entry/Exit Method Stairs Assistance Independent Water Walking Marching Water Level Chest Level Level of Assistance Verbal Cues Sideways Water Level Chest Level Level of Assistance Verbal Cues Backwards Water Level Chest Level Level of Assistance Verbal Cues Forwards Water Level Chest Level Level of Assistance Verbal Cues Lower Extremity Exercises hip ab/ad, flex/ext, circles Body Position Standing Water Level Chest Level Reps/Duration 10x Comments large amplitude, slow for ROM squats Body Position Standing Water Level Chest Level Reps/Duration 10x hamstring curl Body Position Standing Water Level Chest Level Reps/Duration 10x heel raises, toe raises Body Position Standing Water Level Chest Level Reps/Duration 10x Lower Extremity Stretches DKTC, SKTC Body Position Standing Water Level [place] Reps/Duration 2x Comments at wall hamstring, ITB Body Position Standing Water Level Chest Level Equipment Small Noodle Reps/Duration 2x [place] Activities [place] Activities Bicycle Cross [place] Running Equipment small noodle Duration 10' PT-OP-T Assessment and Plan Start: 10/04/18 17:26 Freq: Status: Active Protocol: Document 10/09/18 12:30 [facility] (Rec: 10/09/18 16:22 [facility] [id number]) Physical Therapy Assessment Goals Three Impairment No current HEP Orthopedic Rn 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 STG Duration 4 weeks Longterm Goal (LTG) Be able to get LE's into car without UE assist LTG Duration 6 weeks One Impairment Gait Impaired Short Term Goal (STG) Be able to ambulate 5 min without having to stop due to pain STG Duration 4 weeks Orthopedic Rn Goal (LTG) Be able to ambulate for 10 min without having to stop due to pain LTG Duration 6 weeks Assessment Summary Assessment Patient demonstrated good tolerance to aquatic therapy with denial of pain during session. Cues for postural alignment and core stabilization iwth all ex. Physical Therapy Plan Frequency and Duration Frequency of Treatment 1-2x/week Duration of Treatment 6 weeks Plan of Care Start Date 10/04/18 Plan of Care End Date 11/17/18 Next Visit Focus/Plan Next Note Type Treatment Note Next Visit Plan Continue to progress with aquatic exercise program for pain management, strengtheningj, flexibility.
--- NOTE | 2019-03-14 11:04 | PT.OPDS ---
Current Diagnoses Pain in unspecified hip (10/09/18) Muscle weakness (generalized) (10/09/18) Pain in leg, unspecified (10/09/18) Unspecified abnormalities of gait and mobility (10/09/18) Visit Care Team Role Provider Type Ashley Sherman DO Attending Provider Physician Family Provider Primary Care Provider Specialty: Family Practice Address: [address] [place] [address], [address], [facility] Email: [email or web address] Visit Number Visit Number 2 Discharge Summary PT-OP-B Current Condition Start: 10/04/18 17:26 Freq: Status: Active Protocol: Document 10/04/18 15:15 DLM (Rec: 10/04/18 18:23 DLM [id number]) Current Condition History of Current Condition Onset Date Gradual Current Complaints Bilateral hip pain History of Current Condition She had a gradual onset of pain in shoulders, hands, hips , knees and feet. She underwent a lot of testing and has new diagnoses of RA, Fibromyalgia, OA. Injections and medications have improved her over-all pain. Now her hips are the worst pain. The hip pain makes it hard to walk . She has exercised in the pool in the past and really likes the water. She wants to start therapy in the pool. Prior Treatments and Tests Steroid injections in hips x2. The most recent injections were yesturday. Multiple tests recently including x-rays and MRI. Future Testing and Treatments Planned She continues to undergo testing with her physicians. Treatment Goals Patient/Caregiver Goals She wants to be able to walk further without hip pain. She wants to tolerate more activity. She wants to be able to bend over to the floor and be able to get on/off the floor without increased pain. 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 daughter Baseline Function- Recreation/Hobbies hiking, recreation in the water Current Functional Impairments (Reported) Functional Limitations- ADL's Independent but slow due to pain, painful getting LE's into car and has to use UE's to assist Functional Limitations- Mobility/Gait pain rolling over in bed, pain bending over to reach the floor, hard to get on/off floor and can only do it if has UE support, limited walking tolerance due to pain, she has to stop twice to be able to walk into work, stops to rests for 10-15 sec and can then walk more, ok if she is just standing and moving around on her feet, she can walk better if holding a shopping cart Functional Limitations- 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, difficulty or unable to go to her daughters school events due to difficulty walking and getting into bleachers Functional Limitations- Recreation/ unable to hike, has not been Hobbies able to exercise, unable to do fun things with her daughter Functional Limitations- Other 50# weight gain in the past year Personal Factors Other Personal Factors That May Effect very hard of hearing, hx back Therapy/Recovery discectomy sx, depression PT-OP-C Subjective Start: 10/04/18 17:26 Freq: Status: Active Protocol: Document 10/09/18 12:30 SAK (Rec: 10/09/18 16:23 SAK [id number]) OP-PT Subjective Patient Comments Patient Comments excited to try aquatic therapy . PT-OP-E Functional Tests Start: 10/04/18 17:26 Freq: Status: Active Protocol: Document 10/04/18 15:15 DLM (Rec: 10/04/18 18:23 DLM [id number]) Functional Tests Five Times Sit to Stand Test Score 11 sec Comments no UE support used PT-OP-G Mobility & Gait Start: 10/04/18 17:26 Freq: Status: Active Protocol: Document 10/04/18 15:15 DLM (Rec: 10/04/18 18:23 DLM [id number]) OP Mobility Evaluation Bed Mobility Rolling independent but painful Supine to and from Sit independent Transfers Sit to Stand independent without UE support Bed to Chair Transfers Independent with minimal UE support Car Transfers Pt reports she needs to use UE to assist LE's into car Floor Transfers needs UE support for up and down Functional Movements Squats pain in knees and hips OP Gait Assessment Gait Gait Assistance Required: Independent Assistive Devices Assistive Device None Gait Deviations General Gait Pattern Antalgic,Wide Based Gait Factors Limiting Gait Function Factors Limiting Gait Function Decreased Activity Tolerance, Pain Stair Climbing Evaluation Comments Stair Climbing Comments pt reports she can do her stairs at home if she has rails to assist PT-OP-H Neuro Start: 10/04/18 17:26 Freq: Status: Active Protocol: Document 10/04/18 15:15 DLM (Rec: 10/04/18 18:23 DLM [id number]) Sensation Evaluation Comments Summary Comments hx shows neuropathy, no numbness/tingling reported at this time, she reports her hand and feet pain have improved a lot since starting new medications Coordination Evaluation Comments Coordination Comments grossly WNL throughout, LE edema noted bilaterally PT-OP-K Range of Motion Start: 10/04/18 17:26 Freq: Status: Active Protocol: Document 10/04/18 15:15 DLM (Rec: 10/04/18 18:23 DLM [id number]) Hip Goniometric Range of Motion Hip Right Active Hip ROM WFL Yes Left Active Hip ROM WFL Yes Hip ROM Limitations Comments straight leg raise is WNL Knee Goniometric Range of Motion Knee bilateral Knee ROM WFL Yes Patient Position Sitting Knee ROM Limitations Knee ROM Limitations Pain PT-OP-M Strength Start: 10/04/18 17:26 Freq: Status: Active Protocol: Document 10/04/18 15:15 DLM (Rec: 10/04/18 18:23 DLM [id number]) Hip Strength Hip Manual Muscle Testing Right Flexion (L2) 4- Good- Extension (S1) 5 Normal Abduction 5 Normal Adduction 5 Normal External Rotation 5 Normal Internal Rotation 5 Normal Reason Not Measured Pain Left Flexion (L2) 3- Fair- Abduction 5 Normal Adduction 5 Normal External Rotation 5 Normal Internal Rotation 5 Normal Reason Not Measured Pain Knee Strength Knee Manual Muscle Testing Right Flexion (S2) 5 Normal Extension (L3) 5 Normal Reason Not Measured Pain Comments pain with resisted knee extension in medial area, also sore to touch in medial hamstring and adductor distally near the knee Left Flexion (S2) 5 Normal Extension (L3) 5 Normal Ankle/Foot Strength Ankle and Foot Manual Muscle Testing bilateral Dorsiflexion (L4) 5 Normal Plantarflexion (S1) 5 Normal Comments PF tested in standing PT-OP-T Assessment and Plan Start: 10/04/18 17:26 Freq: Status: Active Protocol: Document 03/14/19 11:03 SAK (Rec: 03/14/19 11:04 SAK [id number]) Physical Therapy Plan Discharge Physical Therapy Discharge Reasons No Longer Attending PT
== END 2019-03-15 08:22 ==
LOC: PHYS 12:30
PROVIDERS: Family Provider Family Medicine; PCP Family Medicine; Visit Provider Family Medicine
DX: M25.559 Pain in unspecified hip (principal); M79.606 Pain in leg, unspecified; M62.81 Muscle weakness (generalized); R26.9 Unspecified abnormalities of gait and mobility
CPT/HCPCS: 97113; 97162

== ENCOUNTER → 2019-03-14 12:54 | Outpatient (CLI) | payer OTHER, MEDICAID, SELFPAY ==
[2019-03-14 14:03] LABS: Add Manual Diff / Slide Review NO; Basophils Absolute Auto 0 /uL (0-100); Basophils Percent Auto 0.8 % (0-2); Eosinophils Absolute Auto 100 /uL (0-450); Hematocrit 39.6 % (36-46); Hemoglobin 13.3 g/dL (12.0-16.0); Lymphocytes Absolute Auto 1700 /uL (1100-4500); Lymphocytes Percent Auto 28.6 % (25-40); Mean Corpuscular HGB Conc 33.7 % (30-36); Mean Corpuscular Hemoglobin 32.5 PG (26-34); Mean Corpuscular Volume 96.6 fL (80-100); Monocytes Absolute Auto 800 /uL (0-900); Monocytes Percent Auto 13.6 % (3-14); Neutrophils Absolute Auto 3400 /uL (1500-7000); Platelet Count 325 X10^3/uL (150-400); Red Cell Distribution Width 15.4 % (11.6-14.8)
[2019-03-14 14:19] LABS: Erythrocyte Sedimentation Rate 29 MM/HR (0-20)
[2019-03-14 14:24] LABS: Alanine Aminotransferase 32 IU/L (<35); Albumin 4.7 g/dL (3.5-5.0); Albumin Globulin Ratio 1.6 (1.0-2.8); Alkaline Phosphatase 77 U/L (38-126); Aspartate Aminotransferase 26 IU/L (14-36); Bilirubin Total 0.3 mg/dL (0.2-1.3); Blood Urea Nitrogen 23 mg/dL (7-17); C-Reactive Protein Quant 0.9 mg/dL (<1.0); Calcium 9.6 mg/dL (8.4-10.2); Carbon Dioxide 29 mmol/L (22-32); Chloride 102 mmol/L (98-107); Estimated Glomerular Filt Rate 57.4 mL/min (>60); Glucose 91 mg/dL (70-100); HEMOLYSIS < 15 (0-50); Potassium 4.4 mmol/L (3.4-5.1); Sodium 141 mmol/L (137-145); Total Protein 7.7 g/dL (6.3-8.2)
== END ==
PROVIDERS: PCP Family Medicine; Visit Provider Physician Assistant Medical
DX: M05.9 Rheumatoid arthritis with rheumatoid factor, unspecified (principal)
CPT/HCPCS: 36415; 80053; 85025; 85651; 86140

== ENCOUNTER → 2019-11-20 10:13 | Outpatient (CLI) | payer OTHER, MEDICAID, SELFPAY ==
[2019-11-20 12:50] LABS: Free T4, Direct Thyroxine 1.13 ng/dL (0.78-2.19)
[2019-11-20 13:04] LABS: Thyroid Stimulating Hormone 1.34 uIU/mL (0.47-4.68)
== END ==
PROVIDERS: PCP Nurse Practitioner; Referring Provider Nurse Practitioner; Visit Provider Nurse Practitioner
DX: F32.9 Major depressive disorder, single episode, unspecified (principal); F41.9 Anxiety disorder, unspecified; I10 Essential (primary) hypertension; R23.2 Flushing
CPT/HCPCS: 36415; 84439; 84443

== ENCOUNTER → 2020-01-09 09:16 | Outpatient (CLI) | payer OTHER, MEDICAID, SELFPAY | PROVIDERS: PCP Nurse Practitioner; Referring Provider Nurse Practitioner; Visit Provider Nurse Practitioner | DX: M25.551 Pain in right hip (principal); Z53.9 Procedure and treatment not carried out, unspecified reason ==

== ENCOUNTER → 2020-01-24 14:49 | Outpatient (CLI) | payer OTHER, MEDICAID, SELFPAY | PROVIDERS: PCP Nurse Practitioner; Visit Provider Registered Nurse | DX: T14.8XXA Other injury of unspecified body region, initial encounter (principal) | CPT/HCPCS: 87070; 87075; 87077; 87147; 87186; 87205 ==

== ENCOUNTER → 2020-01-25 14:44 | Outpatient (CLI) | payer OTHER, MEDICAID, SELFPAY ==
--- NOTE | 2020-01-25 14:45 | DI.US.S_ITS ---
PROCEDURE: US PERIPH VENOUS LOW EXTREM BI INDICATIONS: bilateral lower extremity swelling and pain TECHNIQUE: Real-time imaging, as well as color and pulse Doppler interrogation, were performed of the deep veins of both legs from the inguinal ligament to the popliteal fossa. COMPARISON: None. FINDINGS: Right: The common femoral, femoral and popliteal veins are normally compressible, and free of intraluminal thrombus. Color and pulse Doppler demonstrate normal phasic intravascular flow. There is normal augmentation response to distal compression maneuver. Left: The common femoral, femoral and popliteal veins are normally compressible, and free of intraluminal thrombus. Color and pulse Doppler demonstrate normal phasic intravascular flow. There is normal augmentation response to distal compression maneuver. IMPRESSION: No DVT found. Dictated by: Maurice Coppola M.D. on 01/25/2020 at 16:05 Approved by: Maurice Coppola M.D. on 01/25/2020 at 16:05
== END ==
PROVIDERS: PCP Nurse Practitioner; Referring Provider Registered Nurse; Visit Provider Registered Nurse
DX: M79.89 Other specified soft tissue disorders (principal); M79.605 Pain in left leg; M79.604 Pain in right leg
CPT/HCPCS: 93970

== ENCOUNTER → 2020-05-08 11:03 | Outpatient (CLI) | payer OTHER, MEDICAID, SELFPAY ==
--- NOTE | 2020-05-08 11:07 | DIET.PN ---
Dietary Progress Note Assessment: 59y F c hx of OA, RA, and fibromyalgia currently wheelchair bound referred to nutrition for help with weight loss for upcoming (not yet scheduled) hip surgery. wants to schedule hip surgery as soon as possible, has degenerative changes to hip from RA, fibromialgia and OA has been wheelchair bound since June 2019. Pt has gained 80# since June secondary to physical immobility and emotional eating. Pt reports downfall being sandwiches and nocturnal eating, however also mentioned regular consumption of cheesecake and ice cream. Pt reports she never really feels full. HT: 5'8 WT: 275# measured in RD office (has gained 80# over the past year) UBW: 190-220# BMI: 44.4 Usual Day: bagel c cream cheese and lox or cereal L: snacks rather than lunch D: pasta, chicken, pork chops, tenderloin, usually cooks loves pasta and potatoes Pt has hx of sleep eating when she could walk, associated emotions: bored-angry eating helps her feel a little more in control- has trail mix by bed now that she cannot walk to kitchen. Pt worked 8-10h shifts for the [employer] where she was active. Pt became wheelchair bound and not only continued to eat to the same volume of food leading to weight gain, but also started to emotional/boredom eat more frequently. Pts BMI of 44.4 puts her at higher risk for surgical complications, increased LOS after surgery, and post-op complications. Pt needs to be actively losing weight in a healthy way to reduce risk. Pt has 14y daughter who lives with her and the help of aid/family member to attend appointments/shop/shower. Pt already meal plans for two weeks at a time which will be a strength for this pt. Nutrition Diagnosis: abnormal weight gain r/t excessive intake calories and carbohydrates with reduced physical mobility aeb 80# weight gain <1y (+30% BW), pt reliant on wheelchair secondary to degenerative hip changes, pt endorses emotional eating to manage mood, pt food recall showing high kcal/high carb choices. Interventions: 1. Discussed habit changes and setting up for successful habit reeducation. Encouraged pt to remove all high carb snacks from house to reduce temptation. Encouraged pt to continue meal planning, but to use our reccs learned c RD for successful weight loss. Encouraged pt to undertand rewards she gets from eating certain foods and to find a non-food substitute to fulfill that reward pathway. 2. Discussed Hunger Scale as a form of regulating eating patterns. Pt will eat when a 3 and stop when an 8. Pt will notice if she is eating at a 5 figure out alternate activities to satisfy in non-food manner. 3. Introduced pt to carb consistent diet for promoting weight loss. Educated pt on foods containing carbohydrate and set her to 30-45g per meal and 15-30g per snack with handout provided. Worked c pt to problem solve meals to fit into carb limits, pt reports being excited to start meal planning for the next two weeks. Diet Order: Consistent Carb, Calorie Restricted Diet EER: 1800kcal, 120-150g CHO/d Monitoring/Evaluations: pt to f/u c PCP for continued weight monitoring
[2020-05-08 11:25] VITALS: BMI 40.3
== END ==
PROVIDERS: PCP Nurse Practitioner; Referring Provider Nurse Practitioner; Visit Provider Nurse Practitioner
DX: E66.9 Obesity, unspecified (principal); M79.7 Fibromyalgia; M19.90 Unspecified osteoarthritis, unspecified site; M06.9 Rheumatoid arthritis, unspecified; Z71.3 Dietary counseling and surveillance; Z68.41 Body mass index [BMI] 40.0-44.9, adult
CPT/HCPCS: 97802

== ENCOUNTER → 2020-05-29 13:39 | Outpatient (CLI) | payer OTHER, MEDICAID, SELFPAY ==
[2020-05-29 15:39] LABS: Add Manual Diff / Slide Review NO; Basophils Absolute Auto 0 /uL (0-100); Basophils Percent Auto 0.7 % (0-2); Eosinophils Absolute Auto 100 /uL (0-450); Eosinophils Percent Auto 2.1 % (2-4); Hematocrit 40.5 % (36-46); Hemoglobin 13.9 g/dL (12.0-16.0); Lymphocytes Absolute Auto 2000 /uL (1100-4500); Lymphocytes Percent Auto 30.6 % (25-40); Mean Corpuscular HGB Conc 34.2 % (30-36); Mean Corpuscular Hemoglobin 33.1 PG (26-34); Mean Corpuscular Volume 96.7 fL (80-100); Monocytes Absolute Auto 600 /uL (0-900); Monocytes Percent Auto 9.5 % (3-14); Neutrophils Absolute Auto 3700 /uL (1500-7000); Neutrophils Percent Auto 57.1 % (50-75); Platelet Count 311 X10^3/uL (150-400); Red Blood Cell Count 4.19 X10^6/uL (4.0-5.2); Red Cell Distribution Width 13.7 % (11.6-14.8); White Blood Cell Count 6.5 X10^3/uL (4.5-11.0)
[2020-05-29 16:29] LABS: Alanine Aminotransferase 26 IU/L (<35); Albumin 4.6 g/dL (3.5-5.0); Albumin Globulin Ratio 1.3 (1.0-2.8); Alkaline Phosphatase 87 U/L (38-126); Aspartate Aminotransferase 26 IU/L (14-36); BUN Creatinine Ratio 23.7 (6-22); Bilirubin Total 0.4 mg/dL (0.2-1.3); Blood Urea Nitrogen 22 mg/dL (7-17); C-Reactive Protein Quant 0.8 mg/dL (<1.0); Calcium 9.8 mg/dL (8.4-10.2); Carbon Dioxide 33 mmol/L (22-32); Chloride 97 mmol/L (98-107); Estimated Glomerular Filt Rate > 60.0 mL/min (>60); Globulin 3.5 g/dL (1.7-4.1); Glucose 106 mg/dL (70-100); HEMOLYSIS < 15 (0-50); Potassium 4.2 mmol/L (3.4-5.1); Sodium 136 mmol/L (137-145); Total Protein 8.1 g/dL (6.3-8.2)
[2020-05-29 18:48] LABS: Erythrocyte Sedimentation Rate 14 MM/HR (0-20)
== END ==
PROVIDERS: PCP Nurse Practitioner; Referring Provider Nurse Practitioner; Visit Provider Physician Assistant Medical
DX: M05.9 Rheumatoid arthritis with rheumatoid factor, unspecified (principal)
CPT/HCPCS: 36415; 80053; 85025; 85651; 86140

== ENCOUNTER → 2020-07-23 13:00 | Outpatient (CLI) | payer OTHER, MEDICAID, SELFPAY ==
[2020-07-23] MEDS: COVID-19 VACC #1, MRNA(MOD) 100 MCG/0.5 ML VIAL IM (13:06)
== END ==
PROVIDERS: PCP Nurse Practitioner; Visit Provider Internal Medicine
DX: Z23 Encounter for immunization (principal)
CPT/HCPCS: 0011A; 91301

== ENCOUNTER → 2020-08-20 12:54 | Outpatient (CLI) | payer OTHER, MEDICAID, SELFPAY ==
[2020-08-20] MEDS: COVID-19 VACC #2, MRNA(MOD) 100 MCG/0.5 ML VIAL IM (13:01)
== END ==
PROVIDERS: PCP Nurse Practitioner; Visit Provider Internal Medicine
DX: Z23 Encounter for immunization (principal)
CPT/HCPCS: 0012A; 91301

== ENCOUNTER → 2020-11-24 12:41 | Outpatient (CLI) | payer OTHER, MEDICAID, SELFPAY | PROVIDERS: PCP Nurse Practitioner; Visit Provider Nurse Practitioner | DX: L03.115 Cellulitis of right lower limb (principal) | CPT/HCPCS: 87070; 87075; 87077; 87186; 87205 ==

== ENCOUNTER → 2021-01-06 11:08 | Outpatient (CLI) | payer OTHER, MEDICAID, SELFPAY ==
--- NOTE | 2021-01-06 11:09 | DI.MG.S_ITS ---
BILATERAL DIGITAL SCREENING MAMMOGRAM 3D/2D WITH CAD: 01/06/2021 CLINICAL: Baseline exam. Routine screening. No prior exams were available for comparison. There are scattered fibroglandular elements in both breasts. Current study was also evaluated with a Computer Aided Detection (CAD) system. No significant masses, calcifications, or other findings are seen in either breast. IMPRESSION: NEGATIVE There is no mammographic evidence of malignancy. A 1 year screening mammogram is recommended. This exam was interpreted at Station ID: [id number]. NOTE: For mammograms, a report in lay terms will be sent to the patient. Approximately 15% of breast malignancies will not be visualized mammographically. In the management of a palpable breast mass, a negative mammogram must not discourage biopsy of a clinically suspicious lesion. Electronically Signed By: Mio gross/jewel:01/06/2021 13:08:16 letter sent: Normal Exam ACR BI-RADS Category 1: Negative [id number]
== END ==
PROVIDERS: Family Provider Nurse Practitioner; PCP Nurse Practitioner; Referring Provider Nurse Practitioner; Visit Provider Nurse Practitioner
DX: Z12.31 Encounter for screening mammogram for malignant neoplasm of breast (principal)
CPT/HCPCS: 77063; 77067

== ENCOUNTER → 2021-01-06 11:57 | Outpatient (CLI) | payer OTHER, MEDICAID, SELFPAY ==
--- NOTE | 2021-01-06 12:06 | DIET.CONS ---
Dietary Consultation Note Assessment: 60y F [address] visit for first pre-bariatric surgery nutrition visit (05/06). Pt has weight goal of 250# to qualify for bariatric and hip surgery. Pt attended RD visit 8mo ago for weight loss to qualify for hip surgery. Has made good nutrition changes (reduced nocturnal eating, reduced intake sandwiches) but still has knowledge deficit on nutrition. Pt eats two meals and several snacks daily. Pt likes to have dessert, has been consuming SF or keto desserts not realizing if she eats carbs she is not in ketosis. Usual Day: L: tuna or chicken salad c regular gu, apple, onions, on bed of lettuce c ranch dressing D: 12oz porterhouse steak c steamed broccoli and cauliflower or beets and salad c ranch or hebrew. Several snacks throughout the day Ht: 5'8 Wt: 278# BMI: 42.3 Nutrition Diagnosis: morbid obesity r/t undesirable food choices, physical inactivity, and nutrition related knowledge deficit aeb BMI 42.3, pt electing to move forward with bariatric surgery, pt is wheelchair bound c OA, RA in need of hip replacement, pt eating keto food products for weight loss when not on ketogenic diet. Interventions: 1. Encouraged preliminary food swaps to reduce caloric intake including: switch to [place] yogurt dressings, unsweet almond milk, 0% hebrew yogurt, only half apple in chicken salad. EER: 1800kcals Monitoring/Evaluations: f/u in 1w to continue education and refining diet for weight loss and address nutrition related knowledge deficit. Pt to bring in size/weight of steaks normally consumed. Work on dinner meals.
[2021-01-06 12:10] VITALS: BMI 42.3
== END ==
PROVIDERS: Family Provider Nurse Practitioner; PCP Nurse Practitioner; Referring Provider Nurse Practitioner; Visit Provider Nurse Practitioner
DX: E66.9 Obesity, unspecified (principal); Z68.41 Body mass index [BMI] 40.0-44.9, adult; Z71.3 Dietary counseling and surveillance
CPT/HCPCS: 97803

== ENCOUNTER → 2021-01-14 10:53 | Outpatient (CLI) | payer OTHER, MEDICAID, SELFPAY ==
--- NOTE | 2021-01-14 10:59 | DIET.PN1 ---
Dietary Progress Note 60y F attending second pre-bariatric visit for upcoming gastric bypass surgery. 278# (weight stable from last week) Pt reports the steaks she eats for dinner are 7.6 ounces each. Pt has not been able to shop for new ingredients as she needs to wait until check clears later this month. Pt reports eating 4 apples per day plus other fruit. Educated pt on consuming up to 2 servings fruit/d. Educated pt on hunger/satiety scale, portion sizes, mindful eating using bariatric surgery handouts. Pt to begin logging food and bringing with to visits. f/u in 1 week for pre-bariatric #3
== END ==
PROVIDERS: Family Provider Nurse Practitioner; PCP Nurse Practitioner; Referring Provider Nurse Practitioner; Visit Provider Nurse Practitioner
DX: Z71.3 Dietary counseling and surveillance (principal)
CPT/HCPCS: 97803

== ENCOUNTER → 2021-01-20 11:00 | Outpatient (CLI) | payer MEDICAID, SELFPAY ==
--- NOTE | 2021-01-20 11:02 | DIET.PN1 ---
Dietary Progress Note 60y F attending pre-bariatric surgery nutrition visit #3. Pt started writing food journal but forgot it so wrote down yesterday and today's foods for RD review. 277# (-1# from last week) Performed motivational interviewing regarding pts goals after her surgical procedure to continue increasing motivation on pre-surgery weight loss. f/u in 1 week for pre-bariatric #4 Electronically Signed by: Kristen Singh 01/20/21 11:02 Clinical Dietitian [address] [id number]
== END ==
PROVIDERS: Family Provider Nurse Practitioner; PCP Nurse Practitioner; Referring Provider Nurse Practitioner; Visit Provider Nurse Practitioner
DX: Z71.3 Dietary counseling and surveillance (principal); E66.9 Obesity, unspecified; I10 Essential (primary) hypertension; M06.9 Rheumatoid arthritis, unspecified
CPT/HCPCS: 97803

== ENCOUNTER → 2021-02-23 13:43 | Outpatient (CLI) | payer OTHER, MEDICAID, SELFPAY ==
--- NOTE | 2021-02-23 13:53 | DIET.PN1 ---
Dietary Progress Note Assessment: 60y F attending 4th of 12 pre-bariatric nutrition visit. Tiana missed January visit secondary to being sick. Since then pt has qualified for disability, got help of a caregiver who is with her several hours per day 4 days per week, and gets food assistance. Pts caregiver is helping pt to fill out her nutrition diary log and prep meals. Pt has lost 10# over the past month with current BMI of 40.6! Usual Day: B: egg omelet c veggies L: Protein drink D: 6 oz meat, veggies, 1/2 c starch Sn: 1/2 cucumber c Welsh dressing Ht: 5'9 Wt: 267# (-10#) BMI: 40.6 UBW: 278#+ Monitoring/Evaluations: f/u in 2w for weigh in and to fulfill requirements for bariatric surgery. Electronically Signed by: Kristen Singh 02/23/21 13:53 Clinical Dietitian [address] [address]
== END ==
PROVIDERS: Family Provider Nurse Practitioner; PCP Nurse Practitioner; Referring Provider Nurse Practitioner; Visit Provider Nurse Practitioner
DX: E66.9 Obesity, unspecified (principal); Z68.41 Body mass index [BMI] 40.0-44.9, adult; Z71.3 Dietary counseling and surveillance
CPT/HCPCS: 97803

== ENCOUNTER → 2021-03-10 13:28 | Outpatient (CLI) | payer OTHER, MEDICAID, SELFPAY ==
--- NOTE | 2021-03-10 13:32 | DIET.PN1 ---
Dietary Progress Note 60y F attending [address] visit for pre-bariatric counselling. Current Weight: 271 (+4# in 2w) Pt reports disability check is being delayed so she has no money for grocery shopping and is relying on what is in her cupboard and freezer (TV dinners and soups). Pt is beside herself as she has been working hard lately and has the barrier of food insecurity. Pt should be getting her lump sum payment soon so will be able to afford groceries again to do 1 meal/d replacement with Boost and snack on cucumbers c [place] dressing. Provided pt resources on local food [employer] and [employer]. The hope is pt will do a complimentary shop at [employer] today to restock fruits and veggies. F/u in 2w. Electronically Signed by: Kristen Singh 03/10/21 13:32 Clinical Dietitian [address] [address]
== END ==
PROVIDERS: Family Provider Nurse Practitioner; PCP Nurse Practitioner; Referring Provider Nurse Practitioner; Visit Provider Nurse Practitioner
DX: Z71.3 Dietary counseling and surveillance (principal)
CPT/HCPCS: 97803

== ENCOUNTER → 2021-03-24 11:25 | Outpatient (CLI) | payer OTHER, MEDICAID, SELFPAY ==
--- NOTE | 2021-03-24 11:26 | DIET.PN1 ---
Dietary Progress Note 60y F [address] f/u for pre-bariatric #6 Pt got oral surgery last week and full set dentures. Had trouble eating for 4 days so drank ONS Boost 3x/d. Pt still has mouth pain and sores, getting dentures adjusted tomorrow. Pt had consult for hip surgery, pt DOES NOW qualify for surgery! Has visit Apr 09 to meet with surgeon and set date. Pt continues to have food insecurity secondary to income. Pt now classified as disabled so waiting payments to pay rent and utilities. Pt was able to purchase groceries since our last visit. Wt: 263# (-8# in 2w, -15# since first visit) UBW: 278# Pt wondering next steps to get ready for bariatric surgery ie: sleep study, psychology visit, defer to PCP for plan. Monitoring/Evaluations: f/u in 2w for pre-bariatric #7 Electronically Signed by: Kristen Singh 03/24/21 11:26 Clinical Dietitian [address] [address]
== END ==
PROVIDERS: Family Provider Nurse Practitioner; PCP Nurse Practitioner; Referring Provider Nurse Practitioner; Visit Provider Nurse Practitioner
DX: E66.9 Obesity, unspecified (principal); Z71.3 Dietary counseling and surveillance
CPT/HCPCS: 97803

== ENCOUNTER → 2021-04-08 13:33 | Outpatient (CLI) | payer OTHER, MEDICAID, SELFPAY ==
--- NOTE | 2021-04-08 13:38 | DIET.PN1 ---
Dietary Progress Note 60y F attending [address] f/u for pre-bariatric #7. 253# (-10# in 2w, -25# since start) BMI: 38.5 Pt having on going tooth pain from denture install, however is drinking protein drinks and eating soft foods. Pt was able to easily get herself up and on the scale today, her clothes are fitting loose, and she has much more room in her wheelchair. Pt has surgical consult tomorrow for hip surgery which she is ecstatic about. f/u in 2w for pre-bariatric visit 12/04. Electronically Signed by: Kristen Singh 04/08/21 13:38 Clinical Dietitian [address] [address]
== END ==
PROVIDERS: Family Provider Nurse Practitioner; PCP Nurse Practitioner; Referring Provider Nurse Practitioner; Visit Provider Nurse Practitioner
DX: Z71.3 Dietary counseling and surveillance (principal); E66.9 Obesity, unspecified; I10 Essential (primary) hypertension; M06.9 Rheumatoid arthritis, unspecified
CPT/HCPCS: 97803

== ENCOUNTER → 2021-05-04 15:47 | Outpatient (CLI) | payer OTHER, MEDICAID, SELFPAY ==
--- NOTE | 2021-05-04 15:48 | DI.CT.S_ITS ---
PROCEDURE: CT LE RT WO CON INDICATIONS: RHEUMATOID ARTHRITIS INVOLVING HIP TECHNIQUE: Noncontrast 3 mm axial sections acquired through the bony pelvis. Additional 3 mm axial sections acquired through the symptomatic hip joint, with coronal and sagittal reformats. COMPARISON: [facility], RG, MRI HIP UNILATERAL WO CONTRAST, 02/05/2020, 11:50. [facility], CR, XR PELVIS WITH LATERAL HIP RIGHT, 03/17/2021, 10:11. FINDINGS: Image quality: Excellent. Bones: Advanced arthrosis of the right hip with near complete destruction of the femoral head. Surface irregularity of the acetabulum is seen. Soft tissue density seen within the articulation, most consistent with synovitis. Intra-articular bodies are also noted. The imaged portions of the left hip demonstrate joint space narrowing. The sacroiliac joints are patent and demonstrate vacuum phenomena. Soft tissues: Soft tissue edema about the right hip. IMPRESSION: Advanced arthrosis of the right hip as detailed above, most consistent with an inflammatory arthropathy or chronic avascular necrosis. Dictated by: Perry Reese M.D. on 05/04/2021 at 18:02 Approved by: Perry Reese M.D. on 05/04/2021 at 18:06
== END ==
PROVIDERS: Family Provider Nurse Practitioner; PCP Nurse Practitioner; Referring Provider Student in an Organized Health Care Education/Training Program; Visit Provider Student in an Organized Health Care Education/Training Program
DX: M06.051 Rheumatoid arthritis without rheumatoid factor, right hip (principal)
CPT/HCPCS: 73700

== ENCOUNTER → 2021-05-05 13:32 | Outpatient (CLI) | payer OTHER, MEDICAID, SELFPAY ==
--- NOTE | 2021-05-05 13:35 | DIET.PN1 ---
Dietary Progress Note 60y F attending [address] f/u for pre-bariatric #9. Pt is having her hip replacement tomorrow as she lost enough weight to qualify for surgery! Pt anticipates increased ability to lose weight after surgery as she will be able to mobilize out of her wheelchair and will be working with PT. Discussed nutrition for post-surgical healing. Wt: 251# (-2#) f/u in 2w for pre-bariatric #10 Electronically Signed by: Kristen Singh 05/05/21 13:35 Clinical Dietitian [address] [address]
== END ==
PROVIDERS: Family Provider Nurse Practitioner; PCP Nurse Practitioner; Referring Provider Nurse Practitioner; Visit Provider Nurse Practitioner
DX: Z71.3 Dietary counseling and surveillance (principal)
CPT/HCPCS: 97803

== ENCOUNTER → 2021-05-06 07:43 | Outpatient (CLI) | payer OTHER, MEDICAID, SELFPAY ==
[2021-05-06 09:42] LABS: INR 1.2 (0.9-1.3); Prothrombin Time 13.2 SECONDS (10.1-12.7)
[2021-05-06 09:54] LABS: Add Manual Diff / Slide Review NO; Basophils Absolute Auto 100 /uL (0-100); Basophils Percent Auto 1.1 % (0-2); Eosinophils Absolute Auto 200 /uL (0-450); Eosinophils Percent Auto 4.4 % (2-4); Hematocrit 40.7 % (36-46); Hemoglobin 13.6 g/dL (12.0-16.0); Lymphocytes Absolute Auto 2500 /uL (1100-4500); Lymphocytes Percent Auto 51.7 % (25-40); Mean Corpuscular HGB Conc 33.4 % (30-36); Mean Corpuscular Volume 92.8 fL (80-100); Monocytes Absolute Auto 700 /uL (0-900); Monocytes Percent Auto 14.1 % (3-14); Neutrophils Absolute Auto 1400 /uL (1500-7000); Neutrophils Percent Auto 28.7 % (50-75); Platelet Count 259 X10^3/uL (150-400); Red Blood Cell Count 4.39 X10^6/uL (4.0-5.2); Red Cell Distribution Width 13.6 % (11.6-14.8); White Blood Cell Count 4.7 X10^3/uL (4.5-11.0)
[2021-05-06 10:08] LABS: Alanine Aminotransferase 27 IU/L (<35); Albumin 4.5 g/dL (3.5-5.0); Albumin Globulin Ratio 1.4 (1.0-2.8); Alkaline Phosphatase 70 U/L (38-126); Aspartate Aminotransferase 28 IU/L (14-36); BUN Creatinine Ratio 18.1 (6-22); Bilirubin Total 0.8 mg/dL (0.2-1.3); Blood Urea Nitrogen 15 mg/dL (7-17); Calcium 10.1 mg/dL (8.4-10.2); Carbon Dioxide 33 mmol/L (22-32); Chloride 100 mmol/L (98-107); Estimated Glomerular Filt Rate > 60.0 mL/min (>60); Globulin 3.3 g/dL (1.7-4.1); Glucose 107 mg/dL (70-100); HEMOLYSIS < 15 (0-50); Potassium 3.4 mmol/L (3.4-5.1); Sodium 138 mmol/L (137-145); Total Protein 7.8 g/dL (6.3-8.2)
[2021-05-06 17:29] LABS: INR 1.1 (0.9-1.3); Prothrombin Time 12.7 SECONDS (10.1-12.7)
== END ==
PROVIDERS: Family Provider Nurse Practitioner; PCP Nurse Practitioner; Referring Provider Nurse Practitioner; Visit Provider Nurse Practitioner
DX: Z01.812 Encounter for preprocedural laboratory examination (principal); I10 Essential (primary) hypertension; R79.1 Abnormal coagulation profile
CPT/HCPCS: 36415; 80053; 85025; 85610; 93005; 93010

== ENCOUNTER → 2021-05-19 13:41 | Outpatient (CLI) | payer OTHER, MEDICAID, SELFPAY ==
--- NOTE | 2021-05-19 13:47 | DIET.OUTPTC ---
Dietary Outpatient Consultation Note Consultation Date: 05/19/2021 Pt attending 10th pre-bariatric nutrition visit to qualify for bariatric surgery. Pt's hip surgery was postponed due to rise in covid infections and limit on non-emergent surgeries. Pt is having procedure tomorrow. Wt: 250# (-1# in 2w, -28# to date). Pt has been purchasing [employer] individual portion meals, all of which under 550 kcals. Pt likes the flavors and selections: salmon, asparagus, potato; pot roast, broccoli, potato; salmon, brown rice, broccoli... Pt drinking [employer] drinks to prepare for liquid phase of pre-op diet anticipating bariatric surgery this spring. f/u 2w Electronically Signed by: Kristen Singh 05/19/21 13:47 Clinical Dietitian [address] [address]
== END ==
PROVIDERS: Family Provider Nurse Practitioner; PCP Nurse Practitioner; Referring Provider Nurse Practitioner; Visit Provider Nurse Practitioner
DX: Z71.3 Dietary counseling and surveillance (principal)
CPT/HCPCS: 97803

== ENCOUNTER → 2021-06-04 14:04 | Outpatient (CLI) | payer OTHER, MEDICAID, SELFPAY ==
--- NOTE | 2021-06-04 14:39 | DIET.PN1 ---
Dietary Progress Note 60y F attending 11th of 12 pre-bariatric nutrition visits to qualify for bariatric surgery. Pt walked into visit using her walker today (is 2w out from hip replacement surgery). Pt had been using wheelchair up until today. Wt: 246# (-4# in 2w) Pt enjoying the [employer] fresh meals, eats these for dinner daily. Pt avoids junk food and barely snacks. Pt so excited about hip surgery, healing, home PT states she is healing well and ahead of schedule mobility mcknight so have reduced visits from twice weekly to once per week. Pt looks forward to her upcoming bariatric surgery and says she will never go back to how she used to live. f/u in 2w for last nutrition visit. Electronically Signed by: Kristen Singh 06/04/21 14:39 Clinical Dietitian [address] [address]
== END ==
PROVIDERS: Family Provider Nurse Practitioner; PCP Nurse Practitioner; Referring Provider Nurse Practitioner; Visit Provider Nurse Practitioner
DX: Z01.818 Encounter for other preprocedural examination (principal); Z71.3 Dietary counseling and surveillance
CPT/HCPCS: 97803

== ENCOUNTER → 2021-06-15 13:29 | Outpatient (CLI) | payer OTHER, MEDICAID, SELFPAY ==
--- NOTE | 2021-06-17 12:55 | DIET.PN1 ---
Dietary Progress Note Visit Date: 06/15/21 at 1:30pm 60y F attending last pre-bariatric nutrition visit to qualify for bariatric surgery. Current height and weight: 5'8 and 236# (-40# since initiating nutrition therapy). Pts BMI has dropped from 44 to 35. Pt able to easily ambulate into office and step on scale whereas on first visit pt wheelchair bound needing max assist to stand on scale with much effort. Pt reports no longer eating junk food, focuses on reasonable portions of healthier foods, working on managing stress in ways other than snacking. Pt very excited for her upcoming bariatric surgery, is somewhat concerned about excess skin on pannus, wondering whether this is addressed during bariatric surgery. Pt has made wonderful progress, great insight into eating habits, will do well after surgery to maintain weight loss and health. Electronically Signed by: Kristen Singh 06/17/21 12:55 Clinical Dietitian [address] [address]
== END ==
PROVIDERS: Family Provider Nurse Practitioner; PCP Nurse Practitioner; Referring Provider Nurse Practitioner; Visit Provider Nurse Practitioner
DX: E66.9 Obesity, unspecified (principal); Z71.3 Dietary counseling and surveillance; Z68.35 Body mass index [BMI] 35.0-35.9, adult
CPT/HCPCS: 97803

== ENCOUNTER → 2021-11-09 15:54 | Outpatient (CLI) | payer OTHER, MEDICAID, SELFPAY ==
[2021-11-09 16:37] LABS: Hemoglobin A1C% w Est Avg Glu 5.6 % (4.0-6.0)
[2021-11-09 17:10] LABS: Thyroid Stimulating Hormone 2.37 uIU/mL (0.47-4.68)
== END ==
PROVIDERS: Family Provider Nurse Practitioner; PCP Nurse Practitioner; Referring Provider Nurse Practitioner; Visit Provider Nurse Practitioner
DX: E66.9 Obesity, unspecified (principal); I10 Essential (primary) hypertension; R73.01 Impaired fasting glucose; Z13.1 Encounter for screening for diabetes mellitus; Z13.29 Encounter for screening for other suspected endocrine disorder
CPT/HCPCS: 36415; 83036; 84443

== ENCOUNTER → 2022-02-23 10:05 | Outpatient (CLI) | payer MEDICARE, MEDICAID, SELFPAY ==
--- NOTE | 2022-02-23 10:07 | DI.RAD.S_ITS ---
PROCEDURE: XR CHEST 2V INDICATIONS: cough TECHNIQUE: 2 views of the chest were acquired. COMPARISON: [facility], , CHEST 1 VIEW, 08/08/2017, 16:57. FINDINGS: Surgical changes and devices: None. Lungs and pleura: Mild pulmonary vascular congestion is seen. No definite focal infiltrate. No pleural effusions or pneumothorax. Mediastinum: Mediastinal contours are normal. Heart size is enlarged. Bones and chest wall: No suspicious bony abnormalities. Soft tissues appear unremarkable. IMPRESSION: Cardiomegaly and mild congestion. No focal infiltrate, pleural effusion or pneumothorax. Dictated by: Kali Landon M.D. on 02/23/2022 at 11:18 Approved by: Kali Landon M.D. on 02/23/2022 at 11:22
[2022-02-23 13:14] LABS: Hematocrit 39.2 % (36-46); Mean Corpuscular HGB Conc 33.1 % (30-36); Mean Corpuscular Hemoglobin 31.3 PG (26-34); Mean Corpuscular Volume 94.5 fL (80-100); Platelet Count 299 X10^3/uL (150-400); Red Blood Cell Count 4.15 X10^6/uL (4.0-5.2); Red Cell Distribution Width 12.9 % (11.6-14.8)
[2022-02-23 13:21] LABS: Alanine Aminotransferase 29 IU/L (<35); Albumin 4.3 g/dL (3.5-5.0); Albumin Globulin Ratio 1.4 (1.0-2.8); Alkaline Phosphatase 88 U/L (38-126); Aspartate Aminotransferase 28 IU/L (14-36); BUN Creatinine Ratio 23.3 (6-22); Bilirubin Total 0.3 mg/dL (0.2-1.3); Blood Urea Nitrogen 24 mg/dL (7-17); C-Reactive Protein Quant < 0.5 mg/dL (<1.0); Calcium 9.2 mg/dL (8.4-10.2); Carbon Dioxide 27 mmol/L (22-32); Chloride 101 mmol/L (98-107); Cholesterol 158 mg/dL (140-199); Estimated Glomerular Filt Rate > 60 mL/min (>60); Globulin 3.1 g/dL (1.7-4.1); Glucose 93 mg/dL (70-100); HDL Cholesterol 59 mg/dL (40-60); HEMOLYSIS < 15 (0-50); LDL Cholesterol Calculated 79 mg/dL (<100); Potassium 4.8 mmol/L (3.4-5.1); Sodium 140 mmol/L (137-145); Total Protein 7.4 g/dL (6.3-8.2); Triglycerides 100 mg/dL (35-150)
[2022-02-23 13:29] LABS: Free T3, Triiodothyronine Free 4.11 pg/mL (2.77-5.27); Free T4, Direct Thyroxine 0.94 ng/dL (0.78-2.19)
[2022-02-23 13:43] LABS: Thyroid Stimulating Hormone 1.19 uIU/mL (0.47-4.68)
[2022-02-23 14:21] LABS: Erythrocyte Sedimentation Rate 13 MM/HR (0-20)
[2022-02-25 17:47] LABS: Hep C Virus Ab w/Reflex Quant NEGATIVE s/c (NEGATIVE)
== END ==
PROVIDERS: Family Provider Nurse Practitioner; PCP Nurse Practitioner; Referring Provider Nurse Practitioner; Visit Provider Nurse Practitioner
DX: Z00.00 Encounter for general adult medical examination without abnormal findings (principal); R05.9 Cough, unspecified; M06.9 Rheumatoid arthritis, unspecified; I51.7 Cardiomegaly
CPT/HCPCS: 36415; 71046; 80053; 80061; 84439; 84443; 84481; 85027; 85651; 86140; 86803

== ENCOUNTER → 2022-03-15 12:39 | Outpatient (CLI) | payer MEDICARE, MEDICAID, SELFPAY | PROVIDERS: Family Provider Nurse Practitioner; PCP Nurse Practitioner; Referring Provider Nurse Practitioner; Visit Provider Nurse Practitioner | DX: Z01.810 Encounter for preprocedural cardiovascular examination (principal) | CPT/HCPCS: 93005 ==

== ENCOUNTER → 2022-03-19 11:13 | Outpatient (CLI) | payer MEDICARE, MEDICAID, SELFPAY ==
--- NOTE | 2022-03-19 11:14 | DI.MG.S_ITS ---
BILATERAL DIGITAL SCREENING MAMMOGRAM 3D/2D WITH CAD: 03/19/2022 CLINICAL: Routine screening. Comparison is made to exam dated: 01/06/2021 mammogram - [facility]. There are scattered areas of fibroglandular density in both breasts (category b / 25%-50% glandular tissue). Current study was also evaluated with a Computer Aided Detection (CAD) system. No significant masses, calcifications, or other findings are seen in either breast. There has been no significant interval change. IMPRESSION: NEGATIVE There is no mammographic evidence of malignancy. A 1 year screening mammogram is recommended. Based on the Tyrer Cuzick model (a risk assessment model) the patient's lifetime risk is 8.3% and her 10 year risk is 3.2%. According to the ACR, ACS, and NCCN guidelines, an annual breast MRI exam along with mammogram is recommended if the patient's lifetime risk is 20% or greater. This exam was interpreted at Station ID: [id number]. NOTE: For mammograms, a report in lay terms will be sent to the patient. Approximately 15% of breast malignancies will not be visualized mammographically. In the management of a palpable breast mass, a negative mammogram must not discourage biopsy of a clinically suspicious lesion. Electronically Signed By: Mio gross/jewel:03/19/2022 16:16:26 letter sent: Normal Exam ACR BI-RADS Category 1: Negative 3341F
== END ==
PROVIDERS: Family Provider Nurse Practitioner; PCP Nurse Practitioner; Referring Provider Nurse Practitioner; Visit Provider Nurse Practitioner
DX: Z12.31 Encounter for screening mammogram for malignant neoplasm of breast (principal)
CPT/HCPCS: 77063; 77067

== ENCOUNTER → 2022-03-31 09:18 | Outpatient (CLI) | payer MEDICARE, MEDICAID, SELFPAY ==
[2022-03-31 11:32] LABS: COVID19 -Nasal RAPID Negative (Negative)
== END ==
PROVIDERS: Family Provider Nurse Practitioner; PCP Nurse Practitioner; Visit Provider Surgery
DX: Z20.822 Contact with and (suspected) exposure to COVID-19 (principal); Z01.812 Encounter for preprocedural laboratory examination
CPT/HCPCS: 87635; C9803

== ENCOUNTER 2022-04-01 06:44 | Day surgery (SDC) | payer MEDICARE, MEDICAID, SELFPAY ==
[2022-04-01 07:19] VITALS: BP 156/84; PULSE 77; RESP 18; TEMP 36; O2SAT 97; BMI 82.5
[2022-04-01] MEDS: LACTATED RINGERS 1,000 ML 42 ML IV (07:32)
--- NOTE | 2022-04-01 07:51 | PM.HP.1 ---
History of Present Illness History of Present Illness Date Patient Seen: 04/01/22 Time Patient Seen: 07:52 Chief complaint: SCREENING COLONOSCOPY Narrative: Tiana is a 61-year-old woman who had a colonoscopy with polyps removed about 3 years ago. No known family history of colon cancer. Patient History Medical History (Updated 04/01/22 @ 07:52 by Kobi Walker MD) Acute pancreatitis Anxiety (Unknown) Anxiety Cat scratch Cellulitis Cellulitis and abscess of face Cellulitis of right leg Chickenpox (1969) Chronic pain Class 2 obesity Class 3 obesity Degenerative joint disease of right hip Depression (Unknown) Depression Dyspnea Foot pain (Unknown) Frequent falls Generalized weakness Habitual snoring Hearing loss (Unknown) Hot flashes Laceration of finger Lumbar radiculopathy Lumbar stenosis Muscle spasm of right leg Need for emotional support Nevus of right upper arm PTSD (post-traumatic stress disorder) (Unknown) Restless leg syndrome (Unknown) Rheumatoid arthritis (~02/2017) Rheumatoid arthritis Right knee pain Sleep apnea (Unknown) Stasis dermatitis of both legs Swelling of lower extremity Trouble swallowing Ulcer of right lower leg Uncomplicated opioid dependence Unsteady gait URI (upper respiratory infection) Wound drainage Surgical History History of right hip replacement Status post discectomy Family & Social History Family History Brother Hypertension Father Age: 80 Prostate cancer Grandmother Heart disease Mother No problems noted. Social History: household members family Tobacco & Substance use: Tobacco type smokeless tobacco Smoking Status Current every day smoker alcohol intake current alcohol intake frequency a few times a week Substance Use Type does not use Meds Home Medications and Allergies Home Medications Medication Instructions Recorded Confirmed Type methotrexate sodium 2.5 mg tablet 12.5 mg PO QWEEK 04/13/19 04/01/22 History sulfasalazine 500 mg tablet 1 gram PO BID 04/13/19 04/01/22 History manual wheelchair #1 ea 06/25/20 03/22/22 Rx crutch #2 ea 07/01/20 03/22/22 Rx walker #1 ea 07/01/20 03/22/22 Rx Hip support/ back brace/ #1 ea 07/04/20 03/22/22 Rx substitutions hydroxychloroquine 200 mg tablet 200 mg PO BID 09/10/20 04/01/22 History folic acid 1 mg tablet 1 mg PO DAILY #90 tabs 09/25/20 04/01/22 Rx losartan 50 mg tablet 50 mg PO DAILY #90 tabs 02/02/21 04/01/22 Rx mupirocin 2 % topical ointment 1 applic topical BID PRN 02/12/21 04/01/22 Rx cellulitis 2 weeks #22 grams hospital bed with trapeze and 2 #1 ea 05/11/21 03/22/22 Rx rails Cane #1 ea 06/15/21 03/22/22 Rx diclofenac sodium [Arthritis Pain topical 06/22/21 03/22/22 History (diclofenac)] lidocaine 5 % topical patch 2 patch topical DAILY #180 ea 08/04/21 04/01/22 Rx bupropion HCl 150 mg 24 hr tablet, 150 mg PO QDAY #90 tabs 01/05/22 04/01/22 Rx extended release (Wellbutrin XL) trazodone 50 mg tablet See Rx Instructions .Route 02/04/22 04/01/22 Rx .COMPLEX #90 tabs duloxetine 60 mg capsule,delayed See Rx Instructions .Route 02/23/22 04/01/22 Rx release .COMPLEX #180 caps phentermine 37.5 mg tablet 37.5 mg PO BID #180 tabs 02/24/22 04/01/22 Rx hydrochlorothiazide 25 mg tablet See Rx Instructions .Route 02/25/22 04/01/22 Rx .COMPLEX #180 tabs meloxicam 15 mg tablet 15 mg PO DAILY #90 tabs 02/25/22 04/01/22 Rx hydrocodone 10 mg-acetaminophen 1 tab PO Q8H PRN pain #90 tabs 03/29/22 04/01/22 Rx 325 mg tablet fluconazole 150 mg tablet 150 mg PO Q3D PRN legs 04/01/22 04/01/22 History (Diflucan) Allergies Allergy/AdvReac Type Severity Reaction Status Date / Time NSAIDS (Non-Steroidal Allergy Unknown TOLD BY DR Curtis 04/01/22 07:10 Anti-Inflamma NOT TO [NSAIDS (NON-STEROIDAL TAKE THEM ANTI-INFLAMMA] Exam Vital Signs (past 8 hours): - 04/01/22 07:19 Temperature 96.8 F L Pulse Rate 77 Respiratory Rate 18 Blood Pressure 156/84 H Pulse Oximetry 97 Oxygen Delivery Method Room Air Oxygen Flow Rate 0 Oxygen Delivery Method Room Air Oxygen Flow Rate 0 Const General: No acute distress Assessment & Plan Assessment and plan (1) Colon cancer screening: Status: Acute Plan We reviewed the risks and benefits of colonoscopy and she would like to proceed. Time Spent With Patient Critical Care time: I spent a total of [] minutes of critical care time on this patient's care today; this time is exclusive of procedural time.
[2022-04-01 08:17] VITALS: BP 149/60; PULSE 77; RESP 16; TEMP 36.7; O2SAT 97
--- NOTE | 2022-04-01 08:18 | P.OP.COLON_ITS ---
Operative Date/Time/Diagnoses Date of procedure: 04/01/22 Time of procedure: 08:18 Pre-op diagnosis: History of colon polyps Post-op diagnosis: same Procedure & Clinicians Study performed: Colonoscopy Same procedure as scheduled: Yes Surgeon: Kobi Walekr Procedure Notes Procedure in detail: Surgeon: Kobi Walker MD Anesthesia: Dr. Samuel Cintron Procedure: The patient was brought to the endoscopy suite, placed in left lateral decubitus position. The patient was connected to monitoring devices. A time-out was performed. Sedation was administered. Once the patient was adequately sedated, a digital rectal exam was performed and was normal. The scope was then inserted and advanced to the cecum where the appendiceal orifice was identified and photographed. The scope was then slowly withdrawn over greater than 6 minutes. The mucosa was thoroughly inspected. No polyps or oth er abnormalities were noted. The scope was retroflexed in the rectum. No other abnormalities were noted in the rectum. The scope was straightened and removed. The patient was awakened and brought to recovery. Scope withdrawal time: 9 minutes Sedation time: 14 minutes EBL: 0 Findings: Normal colon Post-procedure Recommendations: Colonoscopy in 10 years Disposition: PACU
[2022-04-01 08:19] VITALS: BP 139/71; PULSE 82; RESP 18; TEMP 36.8; O2SAT 98
[2022-04-01 08:40] VITALS: BP 128/73; PULSE 70; RESP 16; TEMP 36.8; O2SAT 98
== END 2022-04-01 08:48 | disposition home or self-care (01) ==
PROVIDERS: Family Provider Nurse Practitioner; PCP Nurse Practitioner; Referring Provider Surgery; Visit Provider Surgery
PROC: 0DJD8ZZ Inspection of Lower Intestinal Tract, Via Natural or Artificial Opening Endoscopic (ICD-10-PCS; CPT 45378; principal; 2022-04-01 07:45)
DX: Z12.11 Encounter for screening for malignant neoplasm of colon (principal); Z86.010 Personal history of colon polyps
CPT/HCPCS: 45378; G0105; J2250; J2704; J3010

== ENCOUNTER → 2022-05-17 10:59 | Outpatient (CLI) | payer MEDICARE, MEDICAID, SELFPAY ==
[2022-05-18 07:37] LABS: Fecal Immunochemical Test Negative (Negative)
== END ==
PROVIDERS: Family Provider Nurse Practitioner; PCP Nurse Practitioner; Referring Provider Nurse Practitioner; Visit Provider Nurse Practitioner
DX: Z12.11 Encounter for screening for malignant neoplasm of colon (principal)
CPT/HCPCS: 82274

== ENCOUNTER 2022-06-09 14:33 | Emergency (ER) | payer MEDICARE, MEDICAID, SELFPAY ==
[2022-06-09 15:13] VITALS: BP 122/58; PULSE 87; RESP 18; TEMP 36.3; O2SAT 98; BMI 37.5
== END 2022-06-09 18:00 | disposition left against medical advice (07) ==
PROVIDERS: Emergency Provider Emergency Medicine; Family Provider Nurse Practitioner; PCP Nurse Practitioner
CPT/HCPCS: 99281

== ENCOUNTER 2022-06-10 12:23 | Emergency (ER) | payer MEDICARE, MEDICAID, SELFPAY ==
[2022-06-10 12:27] VITALS: BP 140/69; PULSE 81; RESP 16; TEMP 36.6; O2SAT 97; BMI 37.7
--- NOTE | 2022-06-10 12:46 | PC.NURSE ---
Pt has a laceration from her cat scratching her on her left calf. It is approx 5cm in length,1.5cm wide. It is healing,no drainage or blood noted. No redness noted surrounding the wound,although she appears to have PVD with dark colored skin in bilateral lower extremities.
--- NOTE | 2022-06-10 12:52 | ED_ITS ---
HPI - Skin/Abscess/Foreign Bdy <Eric Pope PA-C - Last Filed: 06/10/22 13:25> General Chief complaint: Skin/Abscess/Foreign Body Stated complaint: Cat scratch/gouge on leg Time Seen by Provider: 06/10/22 12:33 History of Present Illness HPI narrative: This is a 61-year-old female presents emergency department due to a cat scratch to her left calf yesterday morning. Patient states that she was playing with the cat when it jumped and scratched her left leg. Tetanus is up-to-date. She states that the cat is fully immunized and vaccinated. Denies any fevers, numbness in her lower extremity, nausea, vomiting, or any other concerning signs or symptoms. No drainage from the wound. Related Data Home Medications Medication Instructions Recorded Confirmed methotrexate sodium 2.5 mg tablet 12.5 mg PO QWEEK 04/13/19 04/01/22 sulfasalazine 500 mg tablet 1 gram PO BID 04/13/19 04/01/22 hydroxychloroquine 200 mg tablet 200 mg PO BID 09/10/20 04/01/22 diclofenac sodium [Arthritis Pain topical 06/22/21 03/22/22 (diclofenac)] Previous Rx's Medication Instructions Recorded manual wheelchair #1 ea 06/25/20 crutch #2 ea 07/01/20 walker #1 ea 07/01/20 Hip support/ back brace/ #1 ea 07/04/20 substitutions folic acid 1 mg tablet 1 mg PO DAILY #90 tabs 09/25/20 losartan 50 mg tablet 50 mg PO DAILY #90 tabs 02/02/21 mupirocin 2 % topical ointment 1 applic topical BID PRN 02/12/21 cellulitis 2 weeks #22 grams hospital bed with trapeze and 2 #1 ea 05/11/21 rails Cane #1 ea 06/15/21 lidocaine 5 % topical patch 2 patch topical DAILY #180 ea 08/04/21 bupropion HCl 150 mg 24 hr tablet, 150 mg PO QDAY #90 tabs 01/05/22 extended release (Wellbutrin XL) trazodone 50 mg tablet See Rx Instructions .Route 02/04/22 .COMPLEX #90 tabs duloxetine 60 mg capsule,delayed See Rx Instructions .Route 02/23/22 release .COMPLEX #180 caps phentermine 37.5 mg tablet 37.5 mg PO BID #180 tabs 02/24/22 meloxicam 15 mg tablet 15 mg PO DAILY #90 tabs 02/25/22 clobetasol 0.05 % topical ointment 1 applic topical QAM AND QPM #30 05/12/22 grams estradiol 10 mcg vaginal tablet 10 mcg vaginal DAILY 2 weeks #44 05/12/22 tabs oxycodone-acetaminophen 10 mg-325 1 tab PO TID PRN pain #90 tabs 05/12/22 mg tablet (Percocet) hydrochlorothiazide 25 mg tablet See Rx Instructions .Route 05/26/22 .COMPLEX #180 tabs amoxicillin 875 mg-potassium 1 tab PO Q12H #20 tabs 06/02/22 clavulanate 125 mg tablet amoxicillin 875 mg-potassium 1 tab PO BID 7 days #14 tabs 06/10/22 clavulanate 125 mg tablet Allergies Allergy/AdvReac Type Severity Reaction Status Date / Time NSAIDS (Non-Steroidal Allergy Unknown TOLD BY DR Curtis 06/10/22 12:30 Anti-Inflamma NOT TO [NSAIDS (NON-STEROIDAL TAKE THEM ANTI-INFLAMMA] Review of Systems <Eric Pope PA-C - Last Filed: 06/10/22 13:25> Review of Systems Narrative: GENERAL: Denies chills, fatigue, malaise, fever, sweats. HEENT: Denies sinus pain, ear pain, sore throat, difficulty swallowing, diz ziness. RESPIRATORY: Denies dyspnea, cough, wheezing, hemoptysis, sputum. CARDIOVASCULAR: Denies chest pain, palpitations, orthopnea, edema, GASTROINTESTINAL: Denies nausea, vomiting, abdominal pain, diarrhea, constipation, melena. : Denies dysuria, frequency, incontinence, hematuria, urinary retention. MUSCULOSKELETAL: denies weakness, joint pain, or bony pain SKIN: Laceration to left calf NEUROLOGIC: Denies weakness, headache, numbness, change in speech, confusion, seizures, incoordination. PSYCHIATRIC: No concerning psychosocial issues. 12 point review of systems is negative except for those stated above Patient History <Eric Pope PA-C - Last Filed: 06/10/22 13:25> Medical History Acute pancreatitis Anxiety (Unknown) Anxiety Cat scratch Cellulitis Cellulitis and abscess of face Cellulitis of right leg Chickenpox (1970) Chronic pain Class 2 obesity Class 3 obesity Degenerative joint disease of right hip Depression (Unknown) Depression Dyspnea Foot pain (Unknown) Frequent falls Generalized weakness Habitual snoring Hearing loss (Unknown) Hot flashes Laceration of finger Lumbar radiculopathy Lumbar stenosis Muscle spasm of right leg Need for emotional support Nevus of right upper arm PTSD (post-traumatic stress disorder) (Unknown) Restless leg syndrome (Unknown) Rheumatoid arthritis (~02/2017) Rheumatoid arthritis Right knee pain Sleep apnea (Unknown) Stasis dermatitis of both legs Swelling of lower extremity Trouble swallowing Ulcer of right lower leg Uncomplicated opioid dependence Unsteady gait URI (upper respiratory infection) Wound drainage Surgical History History of right hip replacement Status post discectomy Family History Brother Hypertension Father Age: 80 Prostate cancer Grandmother Heart disease Mother No problems noted. Social History household members: family Smoking Status: Current every day smoker Tobacco: How many years used: 20 quit status: considering quitting second hand exposure: No alcohol intake: current substance use type: does not use Smoking Status: Current every day smoker tobacco type: cigarettes alcohol intake frequency: a few times a week Substance Use Type: does not use Exam <Eric Pope PA-C - Last Filed: 06/10/22 13:25> Narrative Exam Narrative: GENERAL: Well-developed patient, in mild distress. HEAD: Atraumatic. Normocephalic. EYES: Pupils equal round and reactive. Extraocular motions intact. No scleral icterus. No injection or drainage. ENT: Nose without bleeding, purulent drainage. Throat without erythema, tonsillar hypertrophy or exudate. Airway patent. NECK: Trachea midline. Non tender GASTROINTESTINAL: Abdomen soft, non-tender, nondistended. EXTREMITIES: No edema or joint tenderness. BACK: Nontender without deformity or crepitance. No flank tenderness. NEURO: AOx3. SKIN: Approximately 5 cm long and 1.5 cm wide superficial laceration to the left calf. Minimal surrounding erythema but cool to the touch. Also additional ?L shaped? superficial laceration just superior to that. Initial Vital Signs Initial Vital Signs: Vital Signs Temperature 97.8 F 06/10/22 12:27 Pulse Rate 81 06/10/22 12:27 Respiratory Rate 16 06/10/22 12:27 Blood Pressure 140/69 06/10/22 12:27 Pulse Oximetry 97 06/10/22 12:27 Oxygen Delivery Method 06/10/22 12:27 <Amanda Ware DO - Last Filed: 06/11/22 07:15> Initial Vital Signs Initial Vital Signs: Vital Signs Temperature 97.8 F 06/10/22 12:27 Pulse Rate 81 06/10/22 12:27 Respiratory Rate 16 06/10/22 12:27 Blood Pressure 140/69 06/10/22 12:27 Pulse Oximetry 97 06/10/22 12:27 Oxygen Delivery Method 06/10/22 12:27 Course <Eric Pope PA-C - Last Filed: 06/10/22 13:25> Orders Ordered: Discontinued Medications Bacitracin (Bacitracin Oint 0.9 Gm Pckt) 2 applic TOP NOW ONE Stop: 06/10/22 12:49 Last Admin: 06/10/22 12:55 Dose: 1 applic Documented By: REY Vital Signs Vital signs: Vital Signs - 8 hr 06/10/22 12:27 Temperature 97.8 F Pulse Rate 81 Respiratory Rate 16 Blood Pressure 140/69 Pulse Oximetry 97 Oxygen Delivery Method Room Air <Amanda Ware DO - Last Filed: 06/11/22 07:15> Orders Ordered: Discontinued Medications Bacitracin (Bacitracin Oint 0.9 Gm Pckt) 2 applic TOP NOW ONE Stop: 06/10/22 12:49 Last Admin: 06/10/22 12:55 Dose: 1 applic Documented By: REY Vital Signs Vital signs: Vital Signs - 8 hr 06/10/22 12:27 Temperature 97.8 F Pulse Rate 81 Respiratory Rate 16 Blood Pressure 140/69 Pulse Oximetry 97 Oxygen Delivery Method Room Air MDM - Skin/Abscess/Foreign Bdy <Eric Pope PA-C - Last Filed: 06/10/22 13:25> MDM Narrative Medical decision making narrative: MDM * differential diagnosis includes but not limited to superficial laceration, infected wound * Prior records reviewed: Patient has not been here for similar symptoms in the past * My lab interpretation: None obtained * My imgaing interpretation: None obtained * Clinical Decision Rules/Scores evaluated: None * Independent discussions with: None ED Course: This is a 61-year-old female presents to the emergency department due to a superficial laceration to the left calf. The laceration was not deep enough to require any closure and will allow the wound to heal via secondary intention due to the Wound happening yesterday. Patient was neurovascularly intact throughout. Augmentin prescribed for antibiotic coverage for infection prophylaxis based on current literature regarding pasteurella coverag. Shared Decision Making: Discussed plan the patient is comfortable with the plan Social Considerations: None Disposition: Discharged to home Discharge Plan Departure Patient Disposition: Home Clinical Impression: Cat scratch Instructions: DI for Wound Infection Activity Restrictions/Additional Instructions: Thank you for coming to the [facility] Emergency Department today. Please begin taking antibiotics to avoid any kind of infection. Please keep an eye on the wound and change the dressing as needed. I hope you feel better soon. Prescriptions: New amoxicillin-pot clavulanate 875-125 mg tablet 1 tab PO BID 7 Days Qty: 14 0RF No Action (DME) manual wheelchair See Rx Instructions .Route .MEDSUPPLY Qty: 1 0RF Rx Instructions: manual wheelchair with foam pressure cushion (DME) walker Misc See Rx Instructions .ROUTE .MEDSUPPLY Qty: 1 0RF Rx Instructions: As directed (DME) crutch Misc See Rx Instructions .ROUTE .MEDSUPPLY Qty: 2 0RF Rx Instructions: As directed (DME) Hip support/ back brace/ substitutions See Rx Instructions .Route .MEDSUPPLY Qty: 1 0RF Rx Instructions: Please supply hip support, back brace, or substitutions ans deemed fit to help patient with balance and mobility. folic acid 1 mg tablet 1 mg PO DAILY Qty: 90 3RF losartan 50 mg tablet 50 mg PO DAILY Qty: 90 3RF Rx Instructions: Take 1 tab by mouth daily for hypertension (DME) hospital bed with trapeze and 2 rails See Rx Instructions .Route .MEDSUPPLY Qty: 1 0RF Rx Instructions: length needed 90 days, 18-24 hours per day in bed lidocaine 5 % adhesive patch,medicated 2 patch topical DAILY Qty: 180 0RF Rx Instructions: leave on most painful area for up to 12 hrs bupropion HCl [Wellbutrin XL] 150 mg tablet extended release 24 hr 150 mg PO QDAY Qty: 90 3RF Rx Instructions: Take 1 tab by mouth daily for depression trazodone 50 mg tablet See Rx Instructions .ROUTE .COMPLEX Qty: 90 3RF Dose Instruction: TAKE 1 TABLET BY MOUTH NIGHTLY AT BEDTIME NEEDED FOR INSOMNIA Rx Instructions: TAKE 1 TABLET BY MOUTH NIGHTLY AT BEDTIME NEEDED FOR INSOMNIA phentermine 37.5 mg tablet 37.5 mg PO BID Qty: 180 5RF meloxicam 15 mg tablet 15 mg PO DAILY Qty: 90 3RF Rx Instructions: Take 1 tab by mouth daily for pain management hydrochlorothiazide 25 mg tablet See Rx Instructions .ROUTE .COMPLEX Qty: 180 3RF Dose Instruction: TAKE 2 TABLETS BY MOUTH EVERY MORNING FOR HYPERTENSION Rx Instructions: TAKE 2 TABLETS BY MOUTH EVERY MORNING FOR HYPERTENSION amoxicillin-pot clavulanate 875-125 mg tablet 1 tab PO Q12H Qty: 20 3RF Rx Instructions: Take 1 ta b by mouth every 12 hours x10 days methotrexate sodium 2.5 mg tablet 12.5 mg PO QWEEK Rx Instructions: 5 tabs AM 5 tabs PM once weekly sulfasalazine 500 mg tablet 1 gram PO BID oxycodone-acetaminophen [Percocet] 10-325 mg tablet 1 tab PO TID PRN (Reason: pain) Qty: 90 0RF Rx Instructions: Take 1 tab up to 3x/day as needed for pain estradiol 10 mcg tablet 10 mcg vaginal DAILY 14 Days Qty: 44 3RF Rx Instructions: Insert 1 tab before bedtime x14 days then 2-3x/week thereafter clobetasol 0.05 % ointment 1 applic topical QAM AND QPM Qty: 30 1RF Rx Instructions: Apply to rash on abdomen twice daily x2 weeks or until resolved mupirocin 2 % ointment 1 applic TOP BID PRN (Reason: cellulitis) 14 Days Qty: 22 3RF Rx Instructions: Apply to lower extremities twice daily x2 weeks as needed (DME) Cane See Rx Instructions .Route .MEDSUPPLY Qty: 1 0RF Rx Instructions: Use cane when ambulating for right knee instability. duloxetine 60 mg capsule,delayed release(DR/EC) See Rx Instructions .ROUTE .COMPLEX Qty: 180 3RF Dose Instruction: TAKE ONE CAPSULE BY MOUTH TWICE DAILY FOR DEPRESSION, ANXIETY, AND PAIN FOR 90 DAYS Rx Instructions: TAKE ONE CAPSULE BY MOUTH TWICE DAILY FOR DEPRESSION, ANXIETY, AND PAIN FOR 90 DAYS hydroxychloroquine 200 mg tablet 200 mg PO BID diclofenac sodium [Arthritis Pain (diclofenac)] topical Referrals: Luanne Ghosh ARNP [Primary Care Provider] - Stand Alone Forms: Patient Portal/API <Amanda Ware DO - Last Filed: 06/11/22 07:15> Cosign ED Attending Cosignature Attestation: I was immediately available in the department for consultation. Documentation has been reviewed.
[2022-06-10] MEDS: BACITRACIN OINT 0.9 GM PCKT 2 APPLIC TOP (12:55)
== END 2022-06-10 13:38 | disposition home or self-care (01) ==
PROVIDERS: Emergency Provider Physician Assistant Medical; Family Provider Nurse Practitioner; PCP Nurse Practitioner
DX: S80.812A Abrasion, left lower leg, initial encounter (principal); W55.03XA Scratched by cat, initial encounter
CPT/HCPCS: 99282

== ENCOUNTER 2022-07-11 00:06 | Emergency (ER) | payer MEDICARE, MEDICAID, SELFPAY ==
[2022-07-11 00:25] VITALS: BP 177/79; PULSE 91; RESP 19; TEMP 37.2; O2SAT 95; BMI 37.5
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
--- NOTE | 2022-07-11 00:39 | DI.RAD.S_ITS ---
PROCEDURE: XR CALCANEOUS LT MIN 2V INDICATIONS: pain, swelling, redness TECHNIQUE: Two views of the calcaneus were acquired. COMPARISON: None. FINDINGS: Bones: No fractures or dislocations. No suspicious bony lesions. Soft tissues: No suspicious calcifications. Achilles tendon appears normal. IMPRESSION: No foreign body seen. No evidence of osteomyelitis. Dictated by: Maurice Coppola M.D. on 07/11/2022 at 1:02 Approved by: Maurice Coppola M.D. on 07/11/2022 at 1:03
--- NOTE | 2022-07-11 00:39 | DI.US.S_ITS ---
PROCEDURE: US PERIPH VENOUS LOW EXTREM LT INDICATIONS: pain, swelling, recent injury TECHNIQUE: Real-time imaging, as well as color and pulse Doppler interrogation, were performed of the lower extremity deep veins from the inguinal ligament to the popliteal fossa. COMPARISON: None. FINDINGS: The common femoral, femoral and popliteal veins are normally compressible, and free of intraluminal thrombus. Color and pulse Doppler demonstrate normal phasic intraluminal flow. There is normal augmentation response to distal compression maneuver. IMPRESSION: No DVT found left lower extremity. Dictated by: Maurice Coppola M.D. on 07/11/2022 at 1:56 Approved by: Maurice Coppola M.D. on 07/11/2022 at 1:56
--- NOTE | 2022-07-11 00:39 | DI.RAD.S_ITS ---
PROCEDURE: XR TIBIA FIBULA LT 2V INDICATIONS: recent injury, pain, swelling, FB? TECHNIQUE: 2 views of the tibia and fibula were acquired. COMPARISON: None. FINDINGS: Bones: No fractures or dislocations. No suspicious bony lesions. Soft tissues: No suspicious soft tissue calcifications or masses. IMPRESSION: Edema is seen within the fatty soft tissues of the left calf, no foreign body or gas within the soft tissues is found. Dictated by: Maurice Coppola M.D. on 07/11/2022 at 1:03 Approved by: Maurice Coppola M.D. on 07/11/2022 at 1:03
[2022-07-11] MEDS: DOXYCYCLINE HYCLATE 100 MG TABLET PO (03:26)
[2022-07-11 03:30] VITALS: BP 144/78; PULSE 84; RESP 18; TEMP 36.5; O2SAT 97
== END 2022-07-11 03:32 | disposition home or self-care (01) ==
PROVIDERS: Emergency Provider Emergency Medicine; Family Provider Nurse Practitioner; PCP Nurse Practitioner
DX: L03.116 Cellulitis of left lower limb (principal)
CPT/HCPCS: 73590; 73650; 93971; 99283

== ENCOUNTER → 2022-07-12 12:37 | Outpatient (CLI) | payer MEDICARE, MEDICAID, SELFPAY | PROVIDERS: Family Provider Nurse Practitioner; PCP Nurse Practitioner; Visit Provider Nurse Practitioner | DX: L03.116 Cellulitis of left lower limb (principal); W55.03XA Scratched by cat, initial encounter | CPT/HCPCS: 87070; 87077; 87147; 87186; 87205 ==

== ENCOUNTER → 2022-08-12 08:48 | Outpatient (CLI) | payer MEDICARE, MEDICAID, SELFPAY ==
--- NOTE | 2022-08-12 08:53 | DI.US.S_ITS ---
PROCEDURE: US PELVIC COMPLETE INDICATIONS: vaginal mass posteriorlateral right wall TECHNIQUE: Real-time scanning was performed of the pelvic organs, with image documentation. Additional endovaginal scanning was necessary due to incomplete visualization of the adnexal and endometrial structures by transabdominal scanning. COMPARISON: [facility], CT, ABDOMEN/PELVIS WITH CONTRAST, 09/08/2015, 17:58. FINDINGS: In this patient with this given history, scrutiny is given to vaginal masses. None can be seen. Uterus: Uterus is anteverted and normal in size at 5.2 x 2.7 x 4.1 cm. The myometrium is homogeneous. The endometrium measures 2 mm combined thickness. Ovaries: The right ovary measures 2 x 1 x 1.3 cm, with a calculated ovarian volume of 1.4 cc. The left ovary measures 1.4 x 1 x 0.9 cm, with a calculated ovarian volume of 0.7 cc. Small calcifications can be seen associated with the left ovary. The ovaries otherwise have a normal sonographic appearance. Less than 12 follicles can be seen in each ovary. No adnexal masses are seen. Other: No pathologic free abdominal or pelvic fluid. This study is limited by body habitus. Furthermore, the bladder is poorly prepped. IMPRESSION: No vaginal masses are seen. If clinically appropriate, a dedicated follow-up gynecological protocol MRI (without and with contrast) could be considered for further evaluation (assuming that there is no contraindication). We strive to produce accurate, complete, and clear reports of imaging services. To assist us in improving patient care, this report was composed using standard report templates and voice recognition software. Therefore, it may contain abnormal punctuation, insertions and/or omissions. Occasional wrong-word or sound-alike substitutions may occur. Though we review the report and make efforts to correct it, we do recommend that the report be read carefully in proper context to recognize any text inaccuracies. Dictated by: Donta Geronimo M.D. on 08/12/2022 at 10:02 Approved by: Donta Geronimo M.D. on 08/12/2022 at 10:04
== END ==
PROVIDERS: Family Provider Nurse Practitioner; PCP Nurse Practitioner; Referring Provider Nurse Practitioner; Visit Provider Nurse Practitioner
DX: N89.8 Other specified noninflammatory disorders of vagina (principal)
CPT/HCPCS: 76830; 76856

== ENCOUNTER → 2022-08-18 06:47 | Outpatient (CLI) | payer MEDICARE, MEDICAID, SELFPAY ==
--- NOTE | 2022-08-18 06:48 | DI.ECHO.S_ITS ---
[facility]---------+ [facility] +---------+ : : [address] : : : : [id number] : : : : Phone: [phone]+ Echocardiogram Report + + :Name: DOREEN GRIFFIN Study Date: 08/18/2022 Height: 67 in : :[facility] ReadingLocation: Weight: 242 lb : : Gender: Female BSA: 2.2 m2 : :: 1960 Age: 61 yrs BP: 138/73 mmHg: :Reason For Study: HYPERTENSION : :Ordering Physician: JASON, : :SHANNON Performed By: Olamide Guzman : :Referring: SHANNON GOMEZ : + + Interpretation Summary The ejection fraction is estimated to be 60-65%. There is no significant valvular heart disease. Procedure: A two-dimensional transthoracic echocardiogram with color flow and Doppler was performed. The study quality was technically adequate. Comparison is made with the echocardiogram of 09/09/2015. The patient was in sinus rhythm with heart rates between 69-87 bpm during the exam. Left Ventricle: The left ventricle is normal in size and wall thickness. The ejection fraction is estimated to be 60-65%. Left ventricular wall motion is normal. Right Ventricle: The right ventricle is normal in size and function. Atria: The left atrial size is normal. Right atrial size is normal. There is no Doppler evidence for an interatrial shunt. Mitral Valve: There is mild mitral annular calcification. The mitral valve leaflets appear borderline thickened, but open well. There is trace mitral regurgitation. Aortic Valve: The aortic valve is trileaflet. The aortic valve opens well. There is no aortic valve stenosis. No aortic regurgitation is present. Tricuspid Valve: The tricuspid valve is normal in structure and function. There is trace tricuspid regurgitation. Pulmonary artery pressures cannot be estimated because of the lack of a measurable TR jet velocity. Pulmonic Valve: The pulmonic valve is not well visualized. There is no pulmonic valvular regurgitation. Great Vessels: The aortic root is normal size. The dimensions of the ascending aorta are normal. The IVC is of normal diameter and collapses greater than 50% with a sniff. This suggests a low right atrial pressure of 3 mm Hg. Pericardium/ Pleura There is no pericardial effusion. There is no pleural effusion. MMode/2D Measurements & Calculations LVIDd: 5.5 cm LVOT diam: 2.1 cm LVIDs: 3.2 cm Ao root diam: 3.2 cm FS: 41.2 % asc Aorta Diam: 2.9 cm IVSd: 0.89 cm Ao Arch Diam (Prox Trans): 3.0 cm LVPWd: 0.83 cm LV thornton. diameter/BSA (cm/m^2): 2.5 LV sys. diameter/BSA (cm/m^2): 1.5 LA A2 area: 24.5 cm2 RA long axis: 6.3 cm LA A4 area: 21.0 cm2 RA area: 23.1 cm2 LA length (vol): 6.7 cm RA vol: 72.1 ml LA vol: 65.4 ml RA : 32.9 ml/m2 LA vol index: 29.8 ml/m2 IVC diam: 1.3 cm RVD1 (basal): 3.7 cm RVD2 (mid): 3.0 cm TAPSE: 2.4 cm Doppler Measurements & Calculations Ao V2 max: 207.5 cm/sec LVOT Max Fred: 137.8 cm/sec Ao V2 mean: 132.3 cm/sec LV V1 max P.6 mmHg Ao max P.2 mmHg LV V1 VTI: 30.8 cm Ao mean P.0 mmHg GE[place]IA(I,D): 2.5 cm2 Ao V2 VTI: 41.3 cm GE[place]IA(V,D): 2.2 cm2 sev ratio: 0.75 [place] indexed to BSA (cm^2/m^2): 1.1 MV E max fred: 125.9 cm/sec PA V2 max: 109.5 cm/sec MV A max fred: 153.2 cm/sec PA V2 mean: 77.8 cm/sec MV E/A: 0.82 PA mean P.7 mmHg Med Peak E' Fred: 7.1 cm/sec E/E' med: 17.8 Lat Peak E' Fred: 7.0 cm/sec E/E' lat: 17.9 E/e' average: 17.9 MV dec time: 0.35 sec SV(LVOT): 102.6 ml Reading Physician:01:46 PM
== END ==
PROVIDERS: Family Provider Nurse Practitioner; PCP Nurse Practitioner; Referring Provider Nurse Practitioner; Visit Provider Nurse Practitioner
DX: I34.81 Nonrheumatic mitral (valve) annulus calcification (principal); I10 Essential (primary) hypertension
CPT/HCPCS: 93306

== ENCOUNTER → 2022-09-02 13:57 | Outpatient (CLI) | payer MEDICARE, MEDICAID, SELFPAY ==
[2022-09-02 14:10] LABS: Appearance Urine UA CLEAR; Bilirubin Urine UA NEGATIVE (NEGATIVE); Color Urine UA YELLOW; Glucose Urine UA NEGATIVE (Negative); Ketones Urine UA NEGATIVE (NEGATIVE); Leukocyte Esterase Urine UA 1+ (NEGATIVE); Nitrite Urine UA NEGATIVE (Negative); Occult Blood Urine UA TRACE-INTACT (Negative); Protein Urine UA NEGATIVE (Negative); Specific Gravity Urine UA 1.025 (1.000-1.035); Urobilinogen Urine UA 0.2 E.U./dL (0.2)
[2022-09-02 14:27] LABS: Bacteria Urine Moderate (10-30); Culture Indicated Urine Specimen Cultured; RBC Urine 0-1/HPF (0-5/HPF); Squamous Epithelial Cell Urine 10-30 /HPF (0-5/HPF); Transitional Epi Cells Urine 0-1/HPF (0-5/HPF); WBC Urine 1-5/HPF (0-5/HPF)
== END ==
PROVIDERS: Family Provider Nurse Practitioner; PCP Nurse Practitioner; Referring Provider Nurse Practitioner; Visit Provider Nurse Practitioner
DX: R30.0 Dysuria (principal)
CPT/HCPCS: 81001; 87086

== ENCOUNTER → 2022-09-07 15:48 | Outpatient (CLI) | payer MEDICARE, MEDICAID, SELFPAY ==
[2022-09-07 17:17] LABS: BUN Creatinine Ratio 17.1 (6-22); Blood Urea Nitrogen 19 mg/dL (7-17); Calcium 9.5 mg/dL (8.4-10.2); Carbon Dioxide 31 mmol/L (22-32); Chloride 97 mmol/L (98-107); Estimated Glomerular Filt Rate 57 mL/min (>60); Glucose 87 mg/dL (70-100); HEMOLYSIS < 15 (0-50); Potassium 3.4 mmol/L (3.4-5.1); Sodium 138 mmol/L (137-145)
== END ==
PROVIDERS: Family Provider Nurse Practitioner; PCP Nurse Practitioner; Referring Provider Physician Assistant Medical; Visit Provider Physician Assistant Medical
DX: N28.9 Disorder of kidney and ureter, unspecified (principal)
CPT/HCPCS: 36415; 80048

== ENCOUNTER → 2023-02-09 08:39 | Outpatient (CLI) | payer MEDICARE, MEDICAID, SELFPAY ==
[2023-02-09 10:50] LABS: BUN Creatinine Ratio 25.5 (6-22); Blood Urea Nitrogen 24 mg/dL (7-17); Calcium 9.4 mg/dL (8.4-10.2); Carbon Dioxide 29 mmol/L (22-32); Chloride 99 mmol/L (98-107); Estimated Glomerular Filt Rate > 60 mL/min (>60); Glucose 96 mg/dL (80-110); HEMOLYSIS < 15 (0-50); Potassium 4.4 mmol/L (3.4-5.1); Sodium 138 mmol/L (137-145)
[2023-02-09 11:06] LABS: Vitamin D 25 Hydroxy (D3) 15.8 ng/mL (30.0-100.0)
[2023-02-09 11:37] LABS: Vitamin B12 821 pg/mL (239-931)
[2023-02-09 16:01] LABS: Free T4, Direct Thyroxine 1.07 ng/dL (0.78-2.19)
[2023-02-09 16:15] LABS: Thyroid Stimulating Hormone 0.054 uIU/mL (0.47-4.68)
== END ==
PROVIDERS: Family Provider Nurse Practitioner; PCP Nurse Practitioner; Referring Provider Dermatology; Visit Provider Dermatology
DX: N28.9 Disorder of kidney and ureter, unspecified (principal); L74.519 Primary focal hyperhidrosis, unspecified
CPT/HCPCS: 36415; 80048; 82306; 82607; 84439; 84443

== ENCOUNTER → 2023-05-18 08:08 | Outpatient (CLI) | payer MEDICARE, MEDICAID, SELFPAY ==
--- NOTE | 2023-05-18 08:10 | DI.MG.S_ITS ---
BILATERAL DIGITAL SCREENING MAMMOGRAM 3D/2D WITH CAD: 05/18/2023 CLINICAL: Routine screening. Comparison is made to exams dated: 03/19/2022 mammogram and 01/06/2021 mammogram - [facility]. There are scattered areas of fibroglandular density in both breasts (category b / 25%-50% glandular tissue). Current study was also evaluated with a Computer Aided Detection (CAD) system. No significant masses, calcifications, or other findings are seen in either breast. There has been no significant interval change. IMPRESSION: NEGATIVE There is no mammographic evidence of malignancy. A 1 year screening mammogram is recommended. Based on the Tyrer Cuzick model (a risk assessment model) the patient's lifetime risk is 8.2% and her 10 year risk is 3.3%. According to the ACR, ACS, and NCCN guidelines, an annual breast MRI exam along with mammogram is recommended if the patient's lifetime risk is 20% or greater. This exam was interpreted at Station ID: [id number]. NOTE: For mammograms, a report in lay terms will be sent to the patient. Approximately 15% of breast malignancies will not be visualized mammographically. In the management of a palpable breast mass, a negative mammogram must not discourage biopsy of a clinically suspicious lesion. Electronically Signed By: Demetrio sauer/jewel:05/18/2023 13:48:19 letter sent: Normal Exam ACR BI-RADS Category 1: Negative [id number]
== END ==
PROVIDERS: Family Provider Nurse Practitioner; PCP Nurse Practitioner; Referring Provider Nurse Practitioner; Visit Provider Nurse Practitioner
DX: Z12.31 Encounter for screening mammogram for malignant neoplasm of breast (principal); R92.323 Mammographic fibroglandular density, bilateral breasts
CPT/HCPCS: 77063; 77067

== ENCOUNTER → 2023-06-20 13:38 | Outpatient (CLI) | payer MEDICARE, MEDICAID, SELFPAY | PROVIDERS: Family Provider Nurse Practitioner; PCP Nurse Practitioner; Visit Provider Nurse Practitioner | DX: R52 Pain, unspecified (principal); L53.9 Erythematous condition, unspecified | CPT/HCPCS: 87070; 87075; 87205 ==

== ENCOUNTER 2023-06-22 12:35 | Emergency (ER) | payer MEDICARE, MEDICAID, SELFPAY ==
[2023-06-22 12:42] VITALS: BP 138/98; PULSE 80; RESP 16; TEMP 36.6; O2SAT 97; BMI 36.3
--- NOTE | 2023-06-22 13:26 | PC.NURSE ---
patient got scratched by a cat and developed an abscess. She has been having chills but no fevers. She is sweating but states that its normal for her. She is on methotrexate for RA.
[2023-06-22 13:32] LABS: Add Manual Diff / Slide Review NO; Basophils Absolute Auto 100 /uL (0-100); Basophils Percent Auto 0.7 % (0-2); Eosinophils Absolute Auto 200 /uL (0-450); Eosinophils Percent Auto 2.2 % (2-4); Hematocrit 42.2 % (36-46); Hemoglobin 14.3 g/dL (12.0-16.0); Lymphocytes Absolute Auto 2200 /uL (1100-4500); Lymphocytes Percent Auto 22.5 % (25-40); Mean Corpuscular HGB Conc 33.8 % (30-36); Mean Corpuscular Hemoglobin 32.5 PG (26-34); Mean Corpuscular Volume 96.2 fL (80-100); Monocytes Absolute Auto 1100 /uL (0-900); Monocytes Percent Auto 11.1 % (3-14); Neutrophils Absolute Auto 6200 /uL (1500-7000); Neutrophils Percent Auto 63.5 % (50-75); Platelet Count 250 X10^3/uL (150-400); Red Blood Cell Count 4.39 X10^6/uL (4.0-5.2); White Blood Cell Count 9.8 X10^3/uL (4.5-11.0)
[2023-06-22] MEDS: SODIUM CHLORIDE 0.9% 1,000 ML 1000 ML IV (13:32)
[2023-06-22 13:40] LABS: Prothrombin Time 11.7 SECONDS (9.4-12.5)
[2023-06-22 13:42] LABS: PTT Partial Thromboplastin Tim 36 SECONDS (25.1-36.5)
[2023-06-22 13:44] LABS: Lactate (Lactic Acid) 1.2 mmol/L (0.7-2.1)
[2023-06-22 13:46] LABS: Alanine Aminotransferase 21 IU/L (<35); Albumin 4.5 g/dL (3.5-5.0); Albumin Globulin Ratio 1.2 (1.0-2.8); Alkaline Phosphatase 84 U/L (38-126); Aspartate Aminotransferase 24 IU/L (14-36); BUN Creatinine Ratio 31.6 (6-22); Bilirubin Total 0.7 mg/dL (0.2-1.3); Blood Urea Nitrogen 24 mg/dL (7-17); Calcium 9.3 mg/dL (8.4-10.2); Carbon Dioxide 32 mmol/L (22-32); Chloride 105 mmol/L (98-107); Estimated Glomerular Filt Rate > 60 mL/min (>60); Globulin 3.7 g/dL (1.7-4.1); Glucose 104 mg/dL (80-110); HEMOLYSIS 32 (0-50); Lipase 163 U/L (23-300); Potassium 4.2 mmol/L (3.4-5.1); Sodium 136 mmol/L (137-145); Total Protein 8.2 g/dL (6.3-8.2)
[2023-06-22 14:00] LABS: Procalcitonin 0.05 ng/mL (<0.5)
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
[2023-06-22] MEDS: cefTRIAXone 2,000 MG in SODIUM CHLORIDE 0.9% 100 ML 200 MG IV (15:23)
[2023-06-22 16:01] VITALS: BP 121/62; PULSE 74; RESP 12; O2SAT 98
== END 2023-06-22 16:05 | disposition home or self-care (01) ==
PROVIDERS: Emergency Provider Emergency Medicine; Family Provider Nurse Practitioner; PCP Nurse Practitioner
DX: L02.213 Cutaneous abscess of chest wall (principal); L03.313 Cellulitis of chest wall; M06.9 Rheumatoid arthritis, unspecified
CPT/HCPCS: 10060; 36415; 80053; 83605; 83690; 84145; 85025; 85610; 85730; 87040; 87070; 87075; 87205; 96365; 99283; 99284; J0696

== ENCOUNTER → 2023-07-12 10:34 | Outpatient (CLI) | payer MEDICARE, MEDICAID, SELFPAY ==
--- NOTE | 2023-07-12 10:35 | DI.CT.S_ITS ---
PROCEDURE: CT LUNG LOW DOSE SCREENING INDICATIONS: tobacco use disorder lung cancer screening TECHNIQUE: Noncontrast 2.0-2.5 mm thick sections acquired from the pulmonary apices to the posterior costophrenic angles. 7 mm thick axial MIP, and 5 mm coronal and sagittal reformats were then acquired. For radiation dose reduction, the following was used: automated exposure control, adjustment of mA and/or kV according to patient size. COMPARISON: None. FINDINGS: Image quality: Diagnostic. Lower Neck: No enlarged lymph nodes. Thyroid: No thyroid nodules which require sonographic follow up, per consensus guidelines. Axillae: No enlarged lymph nodes. Chest Wall: Unremarkable. Bones: Unremarkable. Lungs and Pleura: No pneumothorax or pleural effusions. No consolidation or suspicious nodules. Heart: Heart size is normal. No pericardial effusion. Thoracic Vessels: The aorta and pulmonary arteries demonstrate normal size. Mediastinum and [place]: No enlarged lymph nodes. Esophagus: No wall thickening. No hiatal hernia. Upper Abdomen: Visualized upper abdomen solid organs and bowel loops appear normal. IMPRESSION: No suspicious pulmonary nodules. LUNG-RADS 1; continued annual screening, if eligible. Clinically Significant Non-pulmonary Findings: None. Approved by: Michelle Garcia M.D.,Ph.D. on 07/13/2023 at 11:30
== END ==
PROVIDERS: Family Provider Nurse Practitioner; PCP Nurse Practitioner; Referring Provider Nurse Practitioner; Visit Provider Nurse Practitioner
DX: F17.210 Nicotine dependence, cigarettes, uncomplicated (principal); Z12.2 Encounter for screening for malignant neoplasm of respiratory organs
CPT/HCPCS: 71271

== ENCOUNTER → 2023-08-15 12:53 | Outpatient (CLI) | payer MEDICARE, MEDICAID, SELFPAY | PROVIDERS: Family Provider Nurse Practitioner; PCP Nurse Practitioner; Referring Provider Nurse Practitioner; Visit Provider Nurse Practitioner | DX: I10 Essential (primary) hypertension (principal) | CPT/HCPCS: 93005 ==

== ENCOUNTER → 2023-11-22 14:34 | Outpatient (CLI) | payer MEDICARE, MEDICAID, SELFPAY ==
[2023-11-22 14:59] LABS: Add Manual Diff / Slide Review NO; Basophils Absolute Auto 100 /uL (0-100); Basophils Percent Auto 0.8 % (0-2); Eosinophils Absolute Auto 200 /uL (0-450); Eosinophils Percent Auto 2.2 % (2-4); Hematocrit 38.5 % (36-46); Lymphocytes Absolute Auto 3000 /uL (1100-4500); Lymphocytes Percent Auto 42.8 % (25-40); Mean Corpuscular HGB Conc 33.7 % (30-36); Mean Corpuscular Hemoglobin 33.5 PG (26-34); Mean Corpuscular Volume 99.5 fL (80-100); Monocytes Absolute Auto 900 /uL (0-900); Monocytes Percent Auto 12.5 % (3-14); Neutrophils Absolute Auto 2900 /uL (1500-7000); Neutrophils Percent Auto 41.7 % (50-75); Platelet Count 445 X10^3/uL (150-400); Red Blood Cell Count 3.87 X10^6/uL (4.0-5.2); Red Cell Distribution Width 13.7 % (11.6-14.8)
[2023-11-22 15:25] LABS: Alanine Aminotransferase 26 IU/L (<35); Albumin 4.1 g/dL (3.5-5.0); Albumin Globulin Ratio 1.4 (1.0-2.8); Alkaline Phosphatase 66 U/L (38-126); Aspartate Aminotransferase 28 IU/L (14-36); BUN Creatinine Ratio 20.8 (6-22); Bilirubin Total 0.6 mg/dL (0.2-1.3); Blood Urea Nitrogen 32 mg/dL (7-17); Calcium 9.9 mg/dL (8.4-10.2); Carbon Dioxide 33 mmol/L (22-32); Chloride 102 mmol/L (98-107); Estimated Glomerular Filt Rate 38 mL/min (>60); Glucose 84 mg/dL (80-110); HEMOLYSIS 18 (0-50); Magnesium 1.7 mg/dL (1.6-2.3); Potassium 3.7 mmol/L (3.4-5.1); Sodium 141 mmol/L (137-145); Total Protein 7.1 g/dL (6.3-8.2)
[2023-11-22 15:38] LABS: Free T3, Triiodothyronine Free 4.21 pg/mL (2.77-5.27)
[2023-11-22 15:52] LABS: Thyroid Stimulating Hormone 2.23 uIU/mL (0.47-4.68)
== END ==
PROVIDERS: Family Provider Nurse Practitioner; PCP Nurse Practitioner; Referring Provider Nurse Practitioner; Visit Provider Nurse Practitioner
DX: F32.9 Major depressive disorder, single episode, unspecified (principal); R53.1 Weakness; R29.6 Repeated falls; F41.9 Anxiety disorder, unspecified; I10 Essential (primary) hypertension
CPT/HCPCS: 36415; 80053; 83735; 84439; 84443; 84481; 85025

== ENCOUNTER → 2023-12-13 15:39 | Outpatient (CLI) | payer MEDICARE, MEDICAID, SELFPAY ==
[2023-12-13 16:59] LABS: Alanine Aminotransferase 24 IU/L (<35); Albumin 4.4 g/dL (3.5-5.0); Albumin Globulin Ratio 1.4 (1.0-2.8); Alkaline Phosphatase 62 U/L (38-126); Aspartate Aminotransferase 27 IU/L (14-36); BUN Creatinine Ratio 20.6 (6-22); Bilirubin Total 0.6 mg/dL (0.2-1.3); Blood Urea Nitrogen 26 mg/dL (7-17); Calcium 9.7 mg/dL (8.4-10.2); Carbon Dioxide 29 mmol/L (22-32); Chloride 101 mmol/L (98-107); Estimated Glomerular Filt Rate 49 mL/min (>60); Globulin 3.2 g/dL (1.7-4.1); Glucose 90 mg/dL (80-110); HEMOLYSIS < 15 (0-50); Potassium 3.3 mmol/L (3.4-5.1); Sodium 139 mmol/L (137-145); Total Protein 7.6 g/dL (6.3-8.2)
== END ==
LOC: LAB 15:41
PROVIDERS: Family Provider Nurse Practitioner; PCP Nurse Practitioner; Referring Provider Nurse Practitioner; Visit Provider Nurse Practitioner
DX: N17.9 Acute kidney failure, unspecified (principal)
CPT/HCPCS: 36415; 80053

== ENCOUNTER → 2023-12-28 14:23 | Outpatient (CLI) | payer MEDICARE, MEDICAID, SELFPAY ==
[2023-12-28 16:43] LABS: Alanine Aminotransferase 25 IU/L (<35); Albumin 4.4 g/dL (3.5-5.0); Albumin Globulin Ratio 1.3 (1.0-2.8); Alkaline Phosphatase 63 U/L (38-126); Aspartate Aminotransferase 29 IU/L (14-36); BUN Creatinine Ratio 22.2 (6-22); Bilirubin Total 0.6 mg/dL (0.2-1.3); Blood Urea Nitrogen 22 mg/dL (7-17); Calcium 9.2 mg/dL (8.4-10.2); Carbon Dioxide 29 mmol/L (22-32); Chloride 99 mmol/L (98-107); Estimated Glomerular Filt Rate > 60 mL/min (>60); Globulin 3.3 g/dL (1.7-4.1); Glucose 92 mg/dL (80-110); HEMOLYSIS 26 (0-50); Potassium 3.3 mmol/L (3.4-5.1); Sodium 134 mmol/L (137-145); Total Protein 7.7 g/dL (6.3-8.2)
== END ==
PROVIDERS: Family Provider Nurse Practitioner; PCP Nurse Practitioner; Referring Provider Nurse Practitioner; Visit Provider Nurse Practitioner
DX: N28.9 Disorder of kidney and ureter, unspecified (principal)
CPT/HCPCS: 36415; 80053

== ENCOUNTER → 2024-02-23 11:59 | Outpatient (CLI) | payer MEDICARE, MEDICAID, SELFPAY ==
--- NOTE | 2024-02-23 12:00 | DI.US.S_ITS ---
PROCEDURE: US EXTREMELY NONVASC UPPER RT INDICATIONS: Re-evaluate possible abscess TECHNIQUE: Real-time scanning was performed of the right antecubital fossa, with image documentation. COMPARISON: [facility], US, US VENOUS UPPER EXTREMITY DOPPLER LEFT, 02/10/2024, 20:43. [facility], CT, CT UPPER EXTREMITY RIGHT WITH CONTRAST, 02/08/2024, 15:39. FINDINGS: Focused ultrasound examination of right antecubital fossa at patient's reported area of soft tissue infection shows heterogeneously hypoechoic area within deep soft tissue lateral to the basilic vein and show heterogeneously increased vascularity. IMPRESSION: Finding is suggestive of phlegmon formation within antecubital fossa soft tissue. No discrete drainable abscess collection is noted. Dictated by: Kali Landon M.D. on 02/23/2024 at 15:10 Approved by: Kali Landon M.D. on 02/23/2024 at 15:15
== END ==
PROVIDERS: Family Provider Nurse Practitioner; PCP Family Medicine; Referring Provider Nurse Practitioner Family; Visit Provider Nurse Practitioner Family
DX: L03.90 Cellulitis, unspecified (principal)
CPT/HCPCS: 76882

== ENCOUNTER 2024-03-28 11:53 | Emergency (ER) | payer MEDICARE, MEDICAID, SELFPAY ==
[2024-03-28 11:56] VITALS: BP 201/87; PULSE 78; RESP 18; TEMP 36.8; O2SAT 100; BMI 36.5
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
[2024-03-28 13:02] LABS: Add Manual Diff / Slide Review NO; Basophils Absolute Auto 0 /uL (0-100); Eosinophils Absolute Auto 200 /uL (0-450); Hemoglobin 12.6 g/dL (12.0-16.0); Lymphocytes Absolute Auto 2000 /uL (1100-4500); Lymphocytes Percent Auto 40.1 % (25-40); Mean Corpuscular HGB Conc 33.2 % (30-36); Mean Corpuscular Hemoglobin 32.8 PG (26-34); Mean Corpuscular Volume 98.6 fL (80-100); Monocytes Absolute Auto 700 /uL (0-900); Monocytes Percent Auto 13.8 % (3-14); Neutrophils Absolute Auto 2100 /uL (1500-7000); Neutrophils Percent Auto 42.1 % (50-75); Platelet Count 310 X10^3/uL (150-400); Red Blood Cell Count 3.85 X10^6/uL (4.0-5.2); Red Cell Distribution Width 13.6 % (11.6-14.8)
[2024-03-28] MEDS: FUROSEMIDE 40 MG/4 ML VIAL IV (13:08)
[2024-03-28 13:13] LABS: Alanine Aminotransferase 34 IU/L (<35); Albumin 4.3 g/dL (3.5-5.0); Albumin Globulin Ratio 1.5 (1.0-2.8); Alkaline Phosphatase 76 U/L (38-126); Aspartate Aminotransferase 35 IU/L (14-36); BUN Creatinine Ratio 23.5 (6-22); Bilirubin Total 0.4 mg/dL (0.2-1.3); Blood Urea Nitrogen 23 mg/dL (7-17); Calcium 9.2 mg/dL (8.4-10.2); Carbon Dioxide 25 mmol/L (22-32); Chloride 105 mmol/L (98-107); Estimated Glomerular Filt Rate > 60 mL/min (>60); Globulin 2.9 g/dL (1.7-4.1); Glucose 110 mg/dL (80-110); HEMOLYSIS 40 (0-50); Potassium 4.7 mmol/L (3.4-5.1); Sodium 136 mmol/L (137-145); Total Protein 7.2 g/dL (6.3-8.2)
[2024-03-28 13:14] VITALS: BP 149/86; PULSE 65; O2SAT 98
[2024-03-28 13:23] LABS: NT-proBNP (BNP-Adult 18+) 376 pg/mL (<125)
--- NOTE | 2024-03-28 13:43 | PC.NURSE ---
Pt states she was up on her feet a lot for Thanksgiving and since then has noticed increased swelling in her lower extremities. Pt states she use to wear compression socks but has not recently. Pt states she has been compliant with her HCTZ and eloquis; pt dx with bilateral upper extremity clots earlier this year
[2024-03-28 16:57] VITALS: BP 150/68; PULSE 87; O2SAT 97
[2024-03-28 17:01] VITALS: BP 150/68; PULSE 87; RESP 16; O2SAT 96
--- NOTE | 2024-03-28 17:11 | PC.NURSE ---
Reassessed; no change
== END 2024-03-28 17:11 | disposition home or self-care (01) ==
PROVIDERS: Emergency Provider Emergency Medicine; Family Provider Nurse Practitioner; PCP Family Medicine
DX: I87.2 Venous insufficiency (chronic) (peripheral) (principal); R60.0 Localized edema; Z79.01 Long term (current) use of anticoagulants
CPT/HCPCS: 80053; 83880; 85025; 96374; 99283; 99284; J1940

== ENCOUNTER → 2024-05-09 08:34 | Outpatient (CLI) | payer MEDICARE, MEDICAID, SELFPAY ==
--- NOTE | 2024-05-09 08:35 | DI.US.S_ITS ---
PROCEDURE: US PERIPH VENOUS UP EXTREM LEANNA INDICATIONS: F/U RIGHT CEPH VEIN THROMBUS TECHNIQUE: Real-time imaging, as well as color and pulse Doppler interrogation, was performed of both upper extremity deep veins from the inferior neck to the antecubital fossa. COMPARISON: None. FINDINGS: Right: The internal jugular veins, visualized portions of the subclavian veins, axillary veins, and brachial veins are free of intraluminal thrombus. Where physically possible, the veins are normally compressible. Color and pulse Doppler demonstrate normal intraluminal flow, with expected phasicity and pulsatility. Additional scanning of the cephalic and basilic veins of the superficial system demonstrates normal compressibility, without thrombus. Left: The internal jugular veins, visualized portions of the subclavian veins, axillary veins, and brachial veins are free of intraluminal thrombus. Where physically possible, the veins are normally compressible. Color and pulse Doppler demonstrate normal intraluminal flow, with expected phasicity and pulsatility. Additional scanning of the cephalic and basilic veins of the superficial system demonstrates normal compressibility, without thrombus. IMPRESSION: No findings of deep venous thrombosis can be seen within either upper extremity. Dictated by: Cameron Garcia M.D. on 05/09/2024 at 10:05 Approved by: Cameron Garcia M.D. on 05/09/2024 at 10:08
== END ==
PROVIDERS: PCP Family Medicine; Referring Provider Family Medicine; Visit Provider Family Medicine
DX: I82.629 Acute embolism and thrombosis of deep veins of unspecified upper extremity (principal)
CPT/HCPCS: 93970

== ENCOUNTER → 2024-05-19 10:18 | Outpatient (CLI) | payer MEDICARE, MEDICAID, SELFPAY ==
--- NOTE | 2024-05-19 | DI.MG.S_ITS ---
BILATERAL DIGITAL SCREENING MAMMOGRAM 3D/2D WITH CAD: 05/19/2024 CLINICAL: Routine screening. Comparison is made to exams dated: 05/18/2023 mammogram, 03/19/2022 mammogram, and 01/06/2021 mammogram - . There are scattered areas of fibroglandular density (category b / 25%-50% glandular tissue). Current study was also evaluated with a Computer Aided Detection (CAD) system. No significant masses, calcifications, or other findings are seen in either breast. There has been no significant interval change. IMPRESSION: NEGATIVE There is no mammographic evidence of malignancy. A 1 year screening mammogram is recommended. Based on the Tyrer Cuzick model (a risk assessment model) the patient's lifetime risk is 8.0% and her 10 year risk is 3.3%. According to the ACR, ACS, and NCCN guidelines, an annual breast MRI exam along with mammogram is recommended if the patient's lifetime risk is 20% or greater. This exam was interpreted at Station ID: [id number]. NOTE: For mammograms, a report in lay terms will be sent to the patient. Approximately 15% of breast malignancies will not be visualized mammographically. In the management of a palpable breast mass, a negative mammogram must not discourage biopsy of a clinically suspicious lesion. Electronically Signed By: Demetrio sauer/jewel:05/21/2024 14:32:42 letter sent: Normal Exam ACR BI-RADS Category 1: Negative
== END ==
PROVIDERS: PCP Family Medicine; Referring Provider Family Medicine; Visit Provider Family Medicine
DX: Z12.31 Encounter for screening mammogram for malignant neoplasm of breast (principal)
CPT/HCPCS: 77063; 77067

== ENCOUNTER → 2024-06-23 10:49 | Outpatient (CLI) | payer MEDICARE, MEDICAID, SELFPAY ==
--- NOTE | 2024-06-23 10:50 | DI.CT.S_ITS ---
PROCEDURE: CT LUNG LOW DOSE SCREENING INDICATIONS: tobacco use disorder lung cancer screening TECHNIQUE: Noncontrast 2.0-2.5 mm thick sections acquired from the pulmonary apices to the posterior costophrenic angles. 7 mm thick axial MIP, and 5 mm coronal and sagittal reformats were then acquired. For radiation dose reduction, the following was used: automated exposure control, adjustment of mA and/or kV according to patient size. COMPARISON: [facility], CT, CT LUNG LOW DOSE SCREENING, 07/12/2023, 10:37. FINDINGS: Image quality: Diagnostic. Lower Neck: No enlarged lymph nodes. Thyroid: No thyroid nodules which require sonographic follow up, per consensus guidelines. Axillae: No enlarged lymph nodes. Chest Wall: Unremarkable. Bones: Unremarkable. Lungs and Pleura: No pneumothorax or pleural effusions. No consolidation or suspicious nodules. Mild centrilobular and paraseptal emphysema. Heart: Heart size is normal. No pericardial effusion. Three-vessel coronary calcifications. Thoracic Vessels: The aorta and pulmonary arteries demonstrate normal size. Mediastinum and [place]: No enlarged lymph nodes. Esophagus: No wall thickening. No hiatal hernia. Upper Abdomen: Visualized upper abdomen solid organs and bowel loops appear normal. IMPRESSION: No suspicious pulmonary nodules. LUNG-RADS 1; continued annual screening, if eligible. Clinically Significant Non-pulmonary Findings: Marked coronary artery calcifications for age. Correlate with risk factors and advise counseling. Dictated by: Mukesh Ragland M.D. on 06/23/2024 at 13:17 Approved by: Mukesh Ragland M.D. on 06/23/2024 at 13:20
== END ==
PROVIDERS: PCP Family Medicine; Referring Provider Physician Assistant; Visit Provider Physician Assistant
DX: F17.210 Nicotine dependence, cigarettes, uncomplicated (principal); Z12.2 Encounter for screening for malignant neoplasm of respiratory organs; J43.2 Centrilobular emphysema; I25.10 Atherosclerotic heart disease of native coronary artery without angina pectoris
CPT/HCPCS: 71271

== ENCOUNTER → 2024-08-07 10:59 | Outpatient (CLI) | payer MEDICARE, MEDICAID, SELFPAY | LOC: RESP 10:59 | PROVIDERS: PCP Family Medicine; Referring Provider Family Medicine; Visit Provider Family Medicine | DX: F17.200 Nicotine dependence, unspecified, uncomplicated (principal); Z86.16 Personal history of COVID-19; R94.2 Abnormal results of pulmonary function studies; J44.89 Other specified chronic obstructive pulmonary disease | CPT/HCPCS: 94010; 94726; 94729 ==

== ENCOUNTER → 2024-08-30 17:34 | Outpatient (CLI) | payer MEDICARE, MEDICAID, SELFPAY ==
[2024-08-30 18:21] LABS: Alanine Aminotransferase 32 IU/L (<35); Albumin 4.9 g/dL (3.5-5.0); Albumin Globulin Ratio 1.9 (1.0-2.8); Alkaline Phosphatase 65 U/L (38-126); Aspartate Aminotransferase 34 IU/L (14-36); BUN Creatinine Ratio 24.5 (6-22); Bilirubin Total 0.5 mg/dL (0.2-1.3); Blood Urea Nitrogen 38 mg/dL (7-17); Calcium 9.7 mg/dL (8.4-10.2); Carbon Dioxide 31 mmol/L (22-32); Chloride 94 mmol/L (98-107); Estimated Glomerular Filt Rate 38 mL/min (>60); Globulin 2.6 g/dL (1.7-4.1); Glucose 125 mg/dL (70-99); HEMOLYSIS < 15 (0-50); Sodium 135 mmol/L (137-145); Total Protein 7.5 g/dL (6.3-8.2)
== END ==
PROVIDERS: PCP Family Medicine; Referring Provider Family Medicine; Visit Provider Family Medicine
DX: Z01.818 Encounter for other preprocedural examination (principal)
CPT/HCPCS: 80053

== ENCOUNTER → 2024-10-01 10:11 | Outpatient (CLI) | payer MEDICARE, MEDICAID, SELFPAY ==
[2024-10-01 11:23] LABS: Blood Urea Nitrogen 26 mg/dL (7-17); Calcium 9.5 mg/dL (8.4-10.2); Carbon Dioxide 27 mmol/L (22-32); Chloride 102 mmol/L (98-107); Estimated Glomerular Filt Rate > 60 mL/min (>60); Glucose 113 mg/dL (70-99); HEMOLYSIS < 15 (0-50); Potassium 4.3 mmol/L (3.4-5.1); Sodium 138 mmol/L (137-145)
== END ==
PROVIDERS: PCP Family Medicine; Referring Provider Physician Assistant; Visit Provider Physician Assistant
DX: E87.6 Hypokalemia (principal)
CPT/HCPCS: 36415; 80048

== ENCOUNTER → 2024-10-05 09:16 | Outpatient (CLI) | payer MEDICARE, MEDICAID, SELFPAY ==
[2024-10-05 10:06] LABS: Hematocrit 38.6 % (36-46); Hemoglobin 13.2 g/dL (12.0-16.0); Mean Corpuscular HGB Conc 34.2 % (30-36); Mean Corpuscular Hemoglobin 33.6 PG (26-34); Mean Corpuscular Volume 98.4 fL (80-100); Platelet Count 286 X10^3/uL (150-400); Red Blood Cell Count 3.93 X10^6/uL (4.0-5.2); White Blood Cell Count 5.1 X10^3/uL (4.5-11.0)
[2024-10-05 10:33] LABS: BUN Creatinine Ratio 23.2 (6-22); Blood Urea Nitrogen 22 mg/dL (7-17); Calcium 9.5 mg/dL (8.4-10.2); Carbon Dioxide 28 mmol/L (22-32); Chloride 102 mmol/L (98-107); Cholesterol 155 mg/dL (140-199); Estimated Glomerular Filt Rate > 60 mL/min (>60); Glucose 118 mg/dL (70-99); HDL Cholesterol 66 mg/dL (40-60); HEMOLYSIS 17 (0-50); LDL Cholesterol Calculated 74 mg/dL (<100); Potassium 4.4 mmol/L (3.4-5.1); Sodium 138 mmol/L (137-145); Triglycerides 75 mg/dL (35-150)
[2024-10-05 10:43] LABS: NT-proBNP (BNP-Adult 18+) 201 pg/mL (<125)
== END ==
PROVIDERS: PCP Family Medicine; Referring Provider Internal Medicine Cardiovascular Disease; Visit Provider Internal Medicine Cardiovascular Disease
DX: I12.9 Hypertensive chronic kidney disease with stage 1 through stage 4 chronic kidney disease, or unspecified chronic kidney disease (principal); I50.32 Chronic diastolic (congestive) heart failure; R06.09 Other forms of dyspnea
CPT/HCPCS: 36415; 80048; 80061; 83880; 85027

== ENCOUNTER → 2025-02-21 16:01 | Outpatient (CLI) | payer MEDICARE, MEDICAID, SELFPAY ==
--- NOTE | 2025-02-21 16:03 | DI.RAD.S_ITS ---
PROCEDURE: XR CHEST 2V INDICATIONS: cough x 3 weeks+ TECHNIQUE: 2 views of the chest were acquired. COMPARISON: [facility], [place]IAN[place], XR CHEST 2V, 02/23/2022, 10:13. [facility], RIANNA, CHEST 1 VIEW, 08/08/2017, 16:57. FINDINGS: Surgical changes and devices: None. Lungs and pleura: Lungs are clear. No pleural effusions or pneumothorax. Mediastinum: Mediastinal contours are normal. Heart size is normal. Bones and chest wall: No suspicious bony abnormalities. Soft tissues appear unremarkable. IMPRESSION: No acute cardiopulmonary abnormality is seen. Dictated by: Mukesh Ragland M.D. on 02/21/2025 at 16:28 Approved by: Mukesh Ragland M.D. on 02/21/2025 at 16:28
== END ==
PROVIDERS: PCP Family Medicine; Referring Provider Physician Assistant; Visit Provider Physician Assistant
DX: J06.9 Acute upper respiratory infection, unspecified (principal); R05.1 Acute cough
CPT/HCPCS: 71046; 87637

== ENCOUNTER → 2025-02-21 16:10 | Outpatient (CLI) | payer MEDICARE, MEDICAID, SELFPAY ==
[2025-02-21 18:34] LABS: Influenza A - CEPHEID Flu A NEGATIVE (NEGATIVE); Influenza B - CEPHEID Flu B NEGATIVE (NEGATIVE)
[2025-02-21 18:37] LABS: COVID-19 CEPHEID 4-PLEX PCR POSITIVE (Negative)
== END ==
PROVIDERS: PCP Family Medicine; Visit Provider Physician Assistant
DX: R05.1 Acute cough (principal)
CPT/HCPCS: 87637

== ENCOUNTER 2025-03-21 18:45 | Emergency (ER) | payer MEDICARE, MEDICAID, SELFPAY ==
[2025-03-21 18:56] VITALS: BP 137/87; PULSE 78; RESP 18; TEMP 36.8; O2SAT 95; BMI 36.1
--- NOTE | 2025-03-21 19:34 | ED.BACK ---
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 Complains of 4 days duration nontraumatic left-sided flank pain. No fevers or chills. No nausea or vomiting. No painful or frequent urination. No bloody urine. No nausea or vomiting or diarrhea. Having normal bowel movements. No injury trauma new activities. No history of blood clots to legs or lungs recalled. Related Data Home Medications ?Medication ?Instructions ?Recorded ?Confirmed methotrexate sodium 2.5 mg tablet 12.5 mg PO QWEEK 04/13/19 02/21/25 sulfasalazine 500 mg tablet 1 gram PO BID 04/13/19 02/21/25 hydroxychloroquine 200 mg tablet 200 mg PO BID 09/10/20 02/21/25 empagliflozin 10 mg tablet 10 mg PO DAILY 08/08/24 02/21/25 (Jardiance) spironolactone 25 mg tablet 25 mg PO DAILY 08/08/24 02/21/25 atorvastatin 10 mg tablet 40 mg PO DAILY 12/19/24 02/21/25 Previous Rx's ?Medication ?Instructions ?Recorded folic acid 1 mg tablet 1 mg PO DAILY #90 tabs 09/25/20 clobetasol 0.05 % topical ointment 1 applic topical QAM AND QPM #30 05/12/22 grams ondansetron 8 mg disintegrating 8 mg PO Q8H PRN nausea and 11/02/23 tablet vomiting #30 tabs sennosides 8.6 mg tablet (senna) 8.6 mg PO BID #30 tabs 11/02/23 potassium chloride 8 mEq 8 meq PO DAILY #20 caps 03/28/24 capsule,extended release albuterol sulfate 90 mcg/actuation 2 puff PO Q4-6H PRN for muscle 07/31/24 aerosol inhaler spasm #8.5 grams inhalational spacing device #1 ea 08/08/24 (BreatheRite MDI Spacer) mupirocin 2 % topical ointment 1 applic topical BID PRN 08/13/24 cellulitis 2 weeks #22 grams meloxicam 15 mg tablet 15 mg PO DAILY #90 tabs 09/24/24 duloxetine 60 mg capsule,delayed 60 mg PO DAILY anxiety #180 caps 11/12/24 release miconazole nitrate 2 % topical 1 applic topical BID PRN 11/13/24 powder rash/itching #85 grams cyclobenzaprine 5 mg tablet 5 mg PO BID PRN muscle spasm #14 02/07/25 tabs benzonatate 200 mg capsule 200 mg PO TID #30 caps 02/21/25 fluticasone propionate 50 1 spray intranasal DAILY #16 grams 02/21/25 mcg/actuation nasal spray,suspension (Flonase Allergy Relief) guaifenesin 1,200 mg tablet, 1,200 mg PO BID #30 tabs 02/21/25 extended release 12 hr fluticasone 250 mcg-salmeterol 50 1 inh inhalation Q12H #180 ea 02/26/25 mcg/dose blistr powdr for inhalation (Advair Diskus) lidocaine 5 % topical patch 2 patch topical DAILY #180 patches 03/06/25 hydrochlorothiazide 25 mg tablet 50 mg (2 x 25 mg) PO QAM for blood 03/13/25 pressure #180 tabs losartan 50 mg tablet 50 mg PO DAILY for blood pressure 03/13/25 #90 tabs bupropion HCl 150 mg 24 hr tablet, 150 mg PO QDAY #90 tabs 03/19/25 extended release (Wellbutrin XL) omeprazole 20 mg capsule,delayed 20 mg PO DAILY #90 caps 03/19/25 release oxycodone-acetaminophen 10 mg-325 1 tab PO TID PRN pain #90 tabs 25 mg tablet Allergies Allergy/AdvReac Type Severity Reaction Status Date / Time ibuprofen AdvReac Mild Abdominal Verified 03/21/25 18:55 Pain Patient History Medical History (Updated 03/21/25 @ 22:15 by Az Fernandez MD) Hormone replacement therapy (HRT) Cellulitis Gastric reflux Major depressive disorder Chronic venous insufficiency Uncomplicated opioid dependence Class 2 obesity Ulcer of right lower leg Class 3 obesity Lumbar stenosis Lumbar radiculopathy Degenerative joint disease of right hip URI (upper respiratory infection) Wound drainage Swelling of lower extremity Rheumatoid arthritis Hot flashes Chronic pain Anxiety Depression Stasis dermatitis of both legs Cat scratch Rheumatoid arthritis (~02/2017) Sleep apnea (Unknown) Anxiety (Unknown) Depression (Unknown) PTSD (post-traumatic stress disorder) (Unknown) Restless leg syndrome (Unknown) Foot pain (Unknown) Chickenpox (1970) Hearing loss (Unknown) Dyspnea Cellulitis of right leg Cellulitis Laceration of finger Cellulitis and abscess of face Acute pancreatitis Surgical History (Updated 02/07/25 @ 10:43 by Alexys Mccray MD) Status post discectomy Family History Brother Hypertension Father Age: 83 Prostate cancer Grandmother Heart disease Mother No problems noted. Social History household members: family Smoking Status: Former smoker Tobacco: How many years used: 20 quit status: considering quitting second hand exposure: No alcohol intake: current substance use type: does not use Smoking Status: Former smoker tobacco type: cigarettes alcohol intake frequency: a few times a week Exam Narrative Exam Narrative: GENERAL: Well-developed patient, in mild distress. HEAD: Atraumatic. Normocephalic. EYES: Pupils equal round and reactive. Extraocular motions intact. No scleral icterus. No injection or drainage. ENT: Nose without bleeding, purulent drainage. Throat without erythema, tonsillar hypertrophy or exudate. Airway patent. NECK: Trachea midline. Non tender CARDIOVASCULAR: Regular rate and rhythm without murmurs, gallops, or rubs. RESPIRATORY: Clear to auscultation. Breath sounds equal bilaterally. No wheezes, rales, or rhonchi. GASTROINTESTINAL: Abdomen soft, non-tender, nondistended. EXTREMITIES: No edema or joint tenderness. BACK: Nontender without deformity or crepitance. No flank tenderness. NEURO: AOx3. Motor functions grossly nonfocal. SKIN: No rash or erythema of visible areas Initial Vital Signs Initial Vital Signs: Vital Signs Temperature 98.2 F 03/21/25 18:56 Pulse Rate 78 03/21/25 18:56 Respiratory Rate 18 03/21/25 18:56 Blood Pressure 137/87 03/21/25 18:56 Pulse Oximetry 95 03/21/25 18:56 Oxygen Delivery Method Room Air 03/21/25 18:56 Course Orders Ordered: ED Orders 03/21/25 19:47 XR chest 1V Stat EKG-12 Lead Stat 03/21/25 19:56 CT abdomen pelvis wo con Stat 03/21/25 20:03 Complete Blood Count AUTO DIFF Stat Comprehensive Metabolic Panel Stat Lipase Stat Magnesium Stat NT-proBNP (BNP-Adult 18+) Stat Troponin I Stat 03/21/25 21:05 Urinalysis and Microscopic Stat Discontinued Medications Hydrocodone Bitart/Acetaminophen (Hydrocodone/Acet 5/325 Prepack) 1 bottle MISC DIRECTED ONE Stop: 03/21/25 22:04 Last Admin: 03/21/25 22:07 Dose: 1 bottle Documented By: WAGNER Hydromorphone HCl (Hydromorphone Hcl 0.5 Mg/0.5 Ml Syringe) 0.5 mg IV NOW ONE Stop: 03/21/25 19:54 Last Admin: 03/21/25 20:13 Dose: 0.5 mg Documented By: RAMIRO Ondansetron HCl (Ondansetron 4 Mg/2 Ml Inj) 4 mg IV NOW ONE Stop: 03/21/25 19:54 Last Admin: 03/21/25 20:12 Dose: 4 mg Documented By: RAMIRO Vital Signs Vital signs: Vital Signs - 8 hr 03/21/25 18:56 03/21/25 20:44 03/21/25 21:00 Temperature 98.2 F Pulse Rate 78 74 74 Respiratory Rate 18 19 17 Blood Pressure 137/87 Pulse Oximetry 95 92 91 Oxygen Delivery Method Room Air 03/21/25 21:08 03/21/25 21:30 03/21/25 22:00 Temperature Pulse Rate 80 72 76 Respiratory Rate 16 16 13 Blood Pressure Pulse Oximetry 97 93 93 Oxygen Delivery Method 03/21/25 22:00 Temperature Pulse Rate Respiratory Rate 16 Blood Pressure 176/84 H Pulse Oximetry 96 Oxygen Delivery Method MDM - Back Pain/Injury Lab Data Attestation: I reviewed the patient's lab results. Lab results narrative: White blood cell count 5500, hemoglobin 15, platelets adequate. Glucose 110. Normal renal function, serum CO2, electrolytes. Normal liver functions and lipase. Troponin negative/unmeasurable. Urinalysis negative. 03/21/25 20:03 03/21/25 20:03 Labs: Lab Results 03/21/25 03/21/25 Range/Units 20:03 21:05 WBC 5.5 (4.5-11.0) X10^3/uL RBC 4.43 (4.0-5.2) X10^6/uL Hgb 15.0 (12.0-16.0) g/dL Hct 44.3 (36-46) % MCV 99.9 (80-100) fL MCH 33.7 (26-34) PG MCHC 33.8 (30-36) % RDW 14.0 (11.6-14.8) % Plt Count 287 (150-400) X10^3/uL Neut % (Auto) 44.5 L (50-75) % Lymph % (Auto) 38.4 (25-40) % Hodgeman % (Auto) 12.7 (3-14) % Eos % (Auto) 3.5 (2-4) % Baso % (Auto) 0.9 (0-2) % Neut # (Auto) 2400 (0710-3619) /uL Lymph # (Auto) 2100 (4671-3377) /uL Hodgeman # (Auto) 700 (0-900) /uL Eos # (Auto) 200 (0-450) /uL Baso # (Auto) 0 (0-100) /uL Sodium 139 (137-145) mmol/L Potassium 4.2 (3.4-5.1) mmol/L Chloride 100 (98-107) mmol/L Carbon Dioxide 30 (22-32) mmol/L BUN 13 (7-17) mg/dL Creatinine 1.09 H (0.52-1.04) mg/dL Estimated GFR 57 L (>60) mL/min BUN/Creatinine Ratio 11.9 (6-22) Glucose 110 H (70-99) mg/dL Calcium 10.1 (8.4-10.2) mg/dL Magnesium 1.8 (1.6-2.3) mg/dL Total Bilirubin 0.6 (0.2-1.3) mg/dL AST 30 (14-36) IU/L ALT 27 (<35) IU/L Alkaline Phosphatase 74 (38-126) U/L Troponin I < 0.012 (0.01-0.034) ng/mL NT-Pro-B Natriuret Pep 818 H (<125) pg/mL Total Protein 8.3 H (6.3-8.2) g/dL Albumin 5.0 (3.5-5.0) g/dL Globulin 3.3 (1.7-4.1) g/dL Albumin/Globulin Ratio 1.5 (1.0-2.8) Lipase 94 (23-300) U/L Urine Color Yellow Urine Appearance Clear Urine pH 6.0 (4.5-8.0) Ur Specific [place] 1.015 (1.000-1.035) Urine Protein Negative (Negative) Urine Glucose (UA) 2+ H (Negative) g/dL Urine Ketones Negative (NEGATIVE) Urine Occult Blood Negative (Negative) Urine Nitrate Negative (Negative) Urine Bilirubin Negative (NEGATIVE) Urine Urobilinogen 0.2 (0.2) E.U./dL Ur Leukocyte Esterase Negative (NEGATIVE) Urine RBC None seen (0-5/HPF) Urine WBC None seen (0-5/HPF) Ur Squamous Epith Cells 0-1 /hpf D (0-5/HPF) Urine Bacteria None seen (None) Ur Culture Indicated? Cult not indicated Vol Urine Centrifuged 10ml (spun) ECG Data Attestation: I personally reviewed and interpreted this ECG as follows: Interpretation: 2031, normal sinus rhythm with sinus arrhythmia, ventricular response rate 71. No obvious ST segment elevation or depression changes. [place] 170, QRS 82, QTC 436. MDM Narrative Medical decision making narrative: 64-year-old female with history of January 2025 left shoulder surgery, with a few days of increasing left flank and back pain. Afebrile, sirs screen negative. No obvious flank injury, skin changes, vesicle or other rash. Chest x-ray no acute changes, see radiology report. Lab data: White blood cell count 5500, hemoglobin 15, platelets adequate. Glucose 110. Normal renal function, serum CO2, electrolytes. Normal liver functions and lipase. Troponin negative/unmeasurable. CT abdomen and pelvis noncontrast. Shows no acute process, no obstructing stones or hydronephrosis of the urinary system noted, possible cholelithiasis but without appearance of cholecystitis. See radiology report. Cholelithiasis noted but on opposite side of current symptoms, and without obvious infectious changes of the gallbladder mentioned, we will hold off on ultrasound further imaging at this time. 2100, Urinalysis still pending. Urinalysis also negative. Unclear etiology of left flank area back pain. No referred pain from anterior source on CT abdomen and pelvis imaging seemed obvious. Chest x-ray showed no lower lobe pneumonia. Urinalysis negative. Symptoms improved with IV Dilaudid dose. We will give home pack of hydrocodone/acetaminophen to use as needed for pain control. Recheck advised with her PCP. Discharged home, stable, improved. Return precautions discussed. Discharge Plan Departure Patient Disposition: Home Clinical Impression: Left flank pain Activity Restrictions/Additional Instructions: Left flank area discomfort unclear cause. Recent left shoulder surgery January 2025. Lung exam and back exam unremarkable today. No skin rash changes on exam. Labs including urinalysis unremarkable today. Chest x-ray showed no pneumonia or abnormal findings in the symptomatic area. CT scan of the abdomen in the pelvis was also performed, did show the presence of gallstones in the right side but no pathology to explain your symptoms on the left side. There did not seem to be any inflammatory changes of your gallbladder. Likely incidental finding of gallstones only. Home pack of pain medication dispensed to use if needed. Continue taking your meloxicam anti-inflammatory medication, and other chronic medications as prescribed. Recheck symptoms with your regular doctor early this next week if persisting. Return to this/nearest emergency department for any change worsening symptoms or any concerns prior. Prescriptions: No Action folic acid 1 mg tablet 1 mg PO DAILY Qty: 90 3RF albuterol sulfate 90 mcg/actuation HFA aerosol inhaler 2 puff PO Q4-6H PRN (Reason: for muscle spasm) Qty: 8.5 3RF mupirocin 2 % ointment 1 applic TOP BID PRN (Reason: cellulitis) 14 Days Qty: 22 3RF Rx Instructions: Apply to lower extremities twice daily x2 weeks as needed meloxicam 15 mg tablet 15 mg PO DAILY Qty: 90 3RF Rx Instructions: Take 1 tab by mouth daily for pain management duloxetine 60 mg capsule,delayed release(DR/EC) 60 mg PO DAILY Qty: 180 3RF miconazole nitrate 2 % powder 1 applic topical BID PRN (Reason: rash/itching) Qty: 85 3RF fluticasone propion-salmeterol [Advair Diskus] 250-50 mcg/dose blister with device 1 inh inhalation Q12H Qty: 180 3RF lidocaine 5 % adhesive patch,medicated 2 patch topical DAILY Qty: 180 2RF hydrochlorothiazide 25 mg tablet 50 mg PO QAM Qty: 180 3RF losartan 50 mg tablet 50 mg PO DAILY Qty: 90 3RF omeprazole 20 mg capsule,delayed release(DR/EC) 20 mg PO DAILY Qty: 90 3RF bupropion HCl [Wellbutrin XL] 150 mg tablet extended release 24 hr 150 mg PO QDAY Qty: 90 3RF Rx Instructions: Take 1 tab by mouth daily for depression oxycodone-acetaminophen 10-325 mg tablet 1 tab PO TID PRN (Reason: pain) Qty: 90 0RF methotrexate sodium 2.5 mg tablet 12.5 mg PO QWEEK Rx Instructions: 5 tabs AM 5 tabs PM once weekly sulfasalazine 500 mg tablet 1 gram PO BID clobetasol 0.05 % ointment 1 applic topical QAM AND QPM Qty: 30 1RF Rx Instructions: Apply to rash on abdomen twice daily x2 weeks or until resolved cyclobenzaprine 5 mg tablet 5 mg PO BID PRN (Reason: muscle spasm) Qty: 14 0RF atorvastatin 10 mg tablet 40 mg PO DAILY ondansetron 8 mg tablet,disintegrating 8 mg PO Q8H PRN (Reason: nausea and vomiting) Qty: 30 1RF sennosides [senna] 8.6 mg tablet 8.6 mg PO BID Qty: 30 2RF spironolactone 25 mg tablet 25 mg PO DAILY Jardiance 10 mg tablet 10 mg PO DAILY (DME) BreatheRite MDI Spacer Spacer See Rx Instructions .Route Qty: 1 0RF Rx Instructions: As directed benzonatate 200 mg capsule 200 mg PO TID Qty: 30 0RF guaifenesin 1,200 mg tablet extended release 12hr 1,200 mg PO BID Qty: 30 0RF fluticasone propionate [Flonase Allergy Relief] 50 mcg/actuation spray,suspension 1 spray intranasal DAILY Qty: 16 0RF Rx Instructions: administer into each nostril potassium chloride 8 mEq capsule, extended release 8 meq PO DAILY Qty: 20 0RF hydroxychloroquine 200 mg tablet 200 mg PO BID Referrals: Alexys Mccray MD [Primary Care Provider, Family Practice] Stand Alone Forms: Patient Portal/API
--- NOTE | 2025-03-21 19:47 | DI.RAD.S_ITS ---
PROCEDURE: XR CHEST 1V INDICATIONS: left posterior chest/flank pain TECHNIQUE: One view of the chest was acquired. COMPARISON: [facility], CT, CT ABDOMEN PELVIS WO CON, 03/21/2025, 20:20. [facility], CR, XR CHEST 2V, 02/21/2025, 15:58. FINDINGS: Surgical changes and devices: None. Lungs and pleura: Lungs are clear. No pleural effusions or pneumothorax. Mediastinum: Mediastinal contours appear normal. Heart size is prominent. Bones and chest wall: No suspicious bony lesions. Overlying soft tissues appear unremarkable. IMPRESSION: No acute pulmonary process. Dictated by: iWnter Zhang M.D. on 03/21/2025 at 20:30 Approved by: Winter Zhang M.D. on 03/21/2025 at 20:31
--- NOTE | 2025-03-21 19:56 | DI.CT.S_ITS ---
PROCEDURE: CT ABDOMEN PELVIS WO CON INDICATIONS: left back/flank pain TECHNIQUE: Axial sections were acquired from the lung bases to the pubic symphysis. Coronal and sagittal reformats were performed. For radiation dose reduction, the following was used: automated exposure control, adjustment of mA and/or kV according to patient size. COMPARISON: None. FINDINGS: Image quality: Diagnostic. Lower Chest: No significant findings. URINARY: Right Kidney: No stones or hydronephrosis. Right Ureter: No hydroureter. Left Kidney: No stones or hydronephrosis. Left Ureter: No hydroureter. Bladder: Normal wall thickness. No stones. ABDOMEN: Liver: No contour-deforming solid mass. Gallbladder: No radiopaque gallstones or wall thickening. Biliary ducts: No biliary dilation. Pancreas: No ductal dilation. Spleen: Size is within normal limits. Adrenal Glands: No adrenal nodules. Stomach and Bowel: Normal colonic caliber, without significant wall thickening. Peritoneum: No abnormal intraperitoneal fluid. No free air. Ventral Wall: No hernia. Abdominal Nodes: No enlarged retroperitoneal or mesenteric lymph nodes. Vessels: Aorta and inferior vena cava are normal in size. PELVIS: Pelvic Organs: Unremarkable. Pelvic Nodes: Unremarkable. Miscellaneous: No inguinal hernias are seen. Bones: Bilateral hip are the last PEs. IMPRESSION: No obstructing stones or hydronephrosis. Possible cholelithiasis without imaging appearance of cholecystitis. Dictated by: Winter Zhang M.D. on 03/21/2025 at 20:31 Approved by: Winter Zhang M.D. on 03/21/2025 at 20:33
[2025-03-21] MEDS: ONDANSETRON 4 MG/2 ML INJ IV (20:12)
[2025-03-21 20:14] LABS: Add Manual Diff / Slide Review NO; Hematocrit 44.3 % (36-46); Hemoglobin 15.0 g/dL (12.0-16.0); Lymphocytes Absolute Auto 2100 /uL (1100-4500); Mean Corpuscular HGB Conc 33.8 % (30-36); Mean Corpuscular Hemoglobin 33.7 PG (26-34); Mean Corpuscular Volume 99.9 fL (80-100); Platelet Count 287 X10^3/uL (150-400)
[2025-03-21 20:26] LABS: Alanine Aminotransferase 27 IU/L (<35); Albumin 5.0 g/dL (3.5-5.0); Albumin Globulin Ratio 1.5 (1.0-2.8); Alkaline Phosphatase 74 U/L (38-126); Blood Urea Nitrogen 13 mg/dL (7-17); Calcium 10.1 mg/dL (8.4-10.2); Carbon Dioxide 30 mmol/L (22-32); Chloride 100 mmol/L (98-107); Estimated Glomerular Filt Rate 57 mL/min (>60); Globulin 3.3 g/dL (1.7-4.1); Glucose 110 mg/dL (70-99); HEMOLYSIS < 15 (0-50); Lipase 94 U/L (23-300); Magnesium 1.8 mg/dL (1.6-2.3); Potassium 4.2 mmol/L (3.4-5.1); Sodium 139 mmol/L (137-145); Total Protein 8.3 g/dL (6.3-8.2)
--- NOTE | 2025-03-21 20:32 | EKG_ITS ---
[address] [id number] Test Date: 2025-03-21 Pat Name: [facility] Department: [facility] Room: Gender: Female [employer] Lead: RAGHU LERMA : 1960 Requested By: Order Number: [id number] Reading MD: Bronson Oneill Measurements Intervals [place] Rate: 71 P: -3 UT: 170 QRS: 30 QRSD: 82 T: 61 QT: 402 QTc: 436 Interpretive Statements Normal sinus rhythm with sinus arrhythmia Electronically Signed On 03-22-2025 15:06:37 PST by Bronson Oneill
[2025-03-21 20:38] LABS: NT-proBNP (BNP-Adult 18+) 818 pg/mL (<125); Troponin I < 0.012 ng/mL (0.01-0.034)
[2025-03-21 20:44] VITALS: PULSE 74; RESP 19; O2SAT 92
[2025-03-21 21:00] VITALS: PULSE 74; RESP 17; O2SAT 91
[2025-03-21 21:08] VITALS: PULSE 80; RESP 16; O2SAT 97
[2025-03-21 21:30] VITALS: PULSE 72; RESP 16; O2SAT 93
[2025-03-21 21:40] LABS: Appearance Urine UA CLEAR; Bilirubin Urine UA NEGATIVE (NEGATIVE); Color Urine UA YELLOW; Glucose Urine UA 2+ g/dL (Negative); Ketones Urine UA NEGATIVE (NEGATIVE); Leukocyte Esterase Urine UA NEGATIVE (NEGATIVE); Nitrite Urine UA NEGATIVE (Negative); Occult Blood Urine UA NEGATIVE (Negative); Protein Urine UA NEGATIVE (Negative); Specific Gravity Urine UA 1.015 (1.000-1.035); Urobilinogen Urine UA 0.2 E.U./dL (0.2)
[2025-03-21 21:41] LABS: pH Urine UA 6.0 (4.5-8.0)
[2025-03-21 22:00] VITALS: BP 176/84; PULSE 76; RESP 13; RESP 16; O2SAT 93; O2SAT 96
[2025-03-21 22:00] LABS: Culture Indicated Urine Cult Not Indicated
== END 2025-03-21 22:24 | disposition home or self-care (01) ==
PROVIDERS: Emergency Provider Emergency Medicine; PCP Family Medicine
DX: R10.A2 Flank pain, left side (principal); I49.8 Other specified cardiac arrhythmias
CPT/HCPCS: 36415; 71045; 74176; 80053; 81001; 83690; 83735; 83880; 84484; 85025; 93005; 96374; 96375; 99284; J1171; J2405